=== PATIENT | female | born 1945 | race Caucasian/White ===

== ENCOUNTER 2016-11-01 13:59 | Emergency (ER) | payer MEDICARE ==
[2016-11-01] MEDS ORDERED: Pepcid 20 MG VIAL IV ONE ×2 (14:21→14:27)
[2016-11-01] MEDS ORDERED: Zofran 4 MG/2 ML VIAL IV ONE (14:21)
[2016-11-01 14:26] LABS: BASOPHIL % 0.2 % (0.0-0.4); Eosinophil % 1.3 % (0.00-5.0); Granulocytes % 72.8 % (36.0-66.0); Lymphocytes % 19.6 % (24.0-44.0); Mean Cell Volume 88.9 fl (78-100); Mean Corpuscular Hemoglobin 31.1 pg (26-32); Mean Platelet Volume 10.1 fl (6-9.5); Monocytes % 6.1 % (0.0-12.0); Platelet Count 200 K/mm3 (150-450); Red Blood Count 4.24 M/mm3 (4.1-5.4); Red Cell Distribution Width 11.8 % (11.5-14.0); White Blood Count 10.8 K/mm3 (4.0-10.5)
[2016-11-01] MEDS ORDERED: Sodium Chloride 0.9% 1000 ML 1,000 ML ONE (14:27)
[2016-11-01] MEDS ORDERED: Zofran 4 MG/2 ML VIAL ONE (14:27)
--- NOTE | 2016-11-01 14:27 | ERPHSYRPT ---
- History of Present Illness Time Seen by Provider: 11/01/16 14:10 Historian: patient Patient Subjective Stated Complaint: PT COMPLAINS OF ABDOMINAL PAIN,AND BACK PAIN STATES. SHE WAS SEEN 3-4 WEEKS AGO WAS DIAGNOSED WITH UTI. GIVEN AN ANTIBIOTIC STATES SHE WAS STILL HAVING THE ABDOMINAL AND BACK PAIN STATES FOLLOWED UP WITH FAMILY MD AND HAD A PELVIC ULTRASOUND DONE LAST WEEK PT STATES SHE HAS COTINUED TO HAVE THIS PAIN DENIES. FEVER OR DIARRHEA STATES OCCASIONAL NAUSEA DENIES PROBLMES WTIH URINATION. Triage Nursing Assessment: PT ALERT WARM AND DRY RESP EASY NON LABORED ABDOMEN SOFT NON TENDER ON PALPATION PT AMBULATED TO ROOM WITOUT DIFFICULTY. Physician History: CC: abd pain hx: 71 y/o patient with abdominal pain to her back. She has had for a couple weeks, worse and now has nausea. Prior hysterectomy and cholecystectomy. She had normal pelvic sonogram. Initially was treated thru clinic for UTI. She then saw Dr Diehl. No fever or chills or cough. No vomiting. Allergies/Adverse Reactions: No Known Drug Allergies Allergy (Verified 10/24/15 14:11) Home Medications: Aspirin/Dipyridamole [Aggrenox 25 mg-200 mg Capsule] 1 each PO BID 10/24/15 [ History] Atorvastatin Calcium [Lipitor 20MG Tablet] 20 mg PO HS 10/24/15 [History] Carvedilol 6.25 mg [Coreg 6.25 MG] 6.25 mg PO BID 10/24/15 [History] Clonazepam 0.5 mg [Klonopin 0.5 MG] 0.5 mg PO HS 10/24/15 [History] HydrALAzine HCL 25 MG TAB [Apresoline 25 MG TABLET] 25 mg PO TID 10/24/15 [History] Levomefolate/B6/B12/Algal Oil [Metanx Capsule] 1 each PO DAILY 10/24/15 [History ] Hx Tetanus, Diphtheria Vaccination/Date Given: Yes Hx Influenza Vaccination/Date Given: No Hx Pneumococcal Vaccination/Date Given: No Immunizations Up to Date: Yes - Review of Systems Constitutional: No Fever, No Chills Eyes: No Symptoms Ears, Nose, & Throat: No Symptoms Respiratory: No Cough Cardiac: No Chest Pain Abdominal/Gastrointestinal: Abdominal Pain, Nausea, No Vomiting, No Diarrhea Genitourinary Symptoms: No Dysuria Musculoskeletal: Back Pain Skin: No Rash Neurological: No Headache All Other Systems: Reviewed and Negative - Past Medical History Pertinent Past Medical History: Yes Neurological History: No Pertinent History ENT History: No Pertinent History Cardiac History: High Cholesterol, Hypertension Respiratory History: No Pertinent History Endocrine Medical History: No Pertinent History Musculoskeletal History: No Pertinent History GI Medical History: No Pertinent History History: No Pertinent History Psycho-Social History: No Pertinent History Female Reproductive Disorders: No Pertinent History Other Medical History: liver hemangioma - Past Surgical History Past Surgical History: Yes Neuro Surgical History: No Pertinent History Cardiac: No Pertinent History Respiratory: No Pertinent History Gastrointestinal: Cholecystectomy Genitourinary: No Pertinent History Musculoskeletal: No Pertinent History Female Surgical History: Hysterectomy Other Surgical History: partial hysterectomy. a/p repair for fallen bladder - Social History Smoking Status: Never smoker Exposure to second hand smoke: No Drug Use: none Patient Lives Alone: No - Female History Hx Last Menstrual Period: HSYTERECTOMY - Nursing Vital Signs Nursing Vital Signs: Initial Vital Signs Temperature 98.1 F Temperature Source Oral Pulse Rate 64 Respiratory Rate 16 Blood Pressure [] 130/69 Pain Intensity 4 - Physical Exam General Appearance: alert Eye Exam: PERRL/EOMI Ears, Nose, Throat Exam: normal ENT inspection, moist mucous membranes Neck Exam: normal inspection, non-tender, supple Respiratory Exam: normal breath sounds Cardiovascular Exam: regular rate/rhythm Gastrointestinal/Abdomen Exam: soft, tenderness (mild diffuse discomfort), No mass Back Exam: normal inspection, normal range of motion Extremity Exam: normal inspection, normal range of motion Neurologic Exam: alert, oriented x 3, cooperative, supervisor 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 machine II-XII nml as tested, sensation nml, No motor deficits Skin Exam: warm, dry SpO2 Interpretation: normal SpO2: 95 Oxygen Delivery: Room Air - Course Nursing assessment & vital signs reviewed: Yes EKG Interpreted by Me: RATE (59), Sinus Jonatan, NORMAL AXIS, NORMAL INTERVALS ( QTc 416), NORMAL QRS, NORMAL ST-T - CT Exams abdomen/pelvis CT Interpretation: Tele-radiologist Report (stable HH, colonic diverticulosis) Ordered Tests: Active Orders 24 hr Category Date Time Status Clean Catch Urine Specimen STAT Care 11/01/16 14:06 Active EKG-ER Only STAT Care 11/01/16 14:14 Active IV Insertion STAT Care 11/01/16 14:06 Active ABDOMEN AND PELVIS W CONTRAST [CT] Stat Exams 11/01/16 14:21 Taken CBC W DIFF Stat Lab 11/01/16 14:10 Completed CMP Stat Lab 11/01/16 14:10 Completed CULTURE,URINE Stat Lab 11/01/16 14:10 Received LIPASE Stat Lab 11/01/16 14:10 Completed Lactic Acid Stat Lab 11/01/16 14:14 Completed UA W/ MICROSCOPIC Stat Lab 11/01/16 14:10 Completed Medication Summary Generic Name Dose Route Start Last Admin Trade Name Freq PRN Reason Stop Dose Admin Sodium Chloride 1,000 mls @ 100 mls/hr 11/01/16 14:30 11/01/16 14:29 Sodium Chloride 0.9% 1000 Ml IV 12/01/16 14:29 100 mls/hr .Q10H AJ Administration Discontinued Medications Generic Name Dose Route Start Last Admin Trade Name Freq PRN Reason Stop Dose Admin Famotidine 20 mg 11/01/16 14:21 11/01/16 14:31 Pepcid 20 Mg Vial IV 11/01/16 14:22 20 mg STAT ONE Administration Famotidine Confirm 11/01/16 14:27 Pepcid 20 Mg Vial Administered 11/01/16 14:28 Dose 20 mg IV .STK-MED ONE Ondansetron HCl 4 mg 11/01/16 14:21 11/01/16 14:31 Zofran 4 Mg/2 Ml Vial IV 11/01/16 14:22 4 mg STAT ONE Administration Ondansetron HCl Confirm 11/01/16 14:27 Zofran 4 Mg/2 Ml Vial Administered 11/01/16 14:28 Dose 4 mg .ROUTE .STK-MED ONE Lab/Rad Data: Laboratory Result Diagrams 11/01/16 14:10 11/01/16 14:10 Laboratory Results 11/01/16 11/01/16 11/01/16 Range/Units 14:14 14:10 14:10 WBC 10.8 H (4.0-10.5) K/mm3 RBC 4.24 (4.1-5.4) M/mm3 Hgb 13.2 (12.0-16.0) gm/dl Hct 37.7 (35-47) % MCV 88.9 (78-100) fl MCH 31.1 (26-32) pg MCHC 35.0 (32-36) g/dl RDW 11.8 (11.5-14.0) % Plt Count 200 (150-450) K/mm3 MPV 10.1 H (6-9.5) fl Gran % 72.8 H (36.0-66.0) % Lymphocytes % 19.6 L (24.0-44.0) % Monocytes % 6.1 (0.0-12.0) % Eosinophils % 1.3 (0.00-5.0) % Basophils % 0.2 (0.0-0.4) % Basophils # 0.02 (0-0.4) Sodium 138 (136-145) mEq/L Potassium 3.4 L (3.5-5.1) mEq/L Chloride 100 (98-107) mEq/L Carbon Dioxide 27.7 (21-32) mEq/L Anion Gap 13.4 (5-15) MEQ/L BUN 15 (9-20) mg/dL Creatinine 1.01 (0.55-1.30) mg/dl Estimated GFR 58 ML/MIN Glucose 117 H (70-110) MG/DL Lactic Acid 1.2 (0.4-2.0) Calcium 9.9 (8.5-10.1) mg/dL Total Bilirubin 0.70 (0.2-1.0) mg/dL AST 17 (15-37) U/L ALT 27 (12-78) U/L Alkaline Phosphatase 76 (46-116) U/L Serum Total Protein 7.7 (6.4-8.2) gm/dL Albumin 4.1 (3.4-5.0) g/dL Lipase 109 (73-393) U/L Ur Collection Type Urine Color (YELLOW) Urine Appearance (CLEAR) Urine pH (5-6) Ur Specific [place] (1.005-1.025) Urine Protein (Negative) Urine Ketones (NEGATIVE) Urine Blood (0-5) Иван/ul Urine Nitrite (NEGATIVE) Urine Bilirubin (NEGATIVE) Urine Urobilinogen (0-1) mg/dL Ur Leukocyte Esterase (NEGATIVE) Urine Microscopic RBC (0-2) /HPF Urine Microscopic WBC (0-5) /HPF Ur Epithelial Cells (FEW) /HPF Urine Bacteria (NEGATIVE) /HPF Hyaline Casts (0-2) /LPF Urine Mucus (NEGATIVE) /HPF Urine Glucose (NEGATIVE) mg/dL Specimen Received 11/01/16 Range/Units 14:10 WBC (4.0-10.5) K/mm3 RBC (4.1-5.4) M/mm3 Hgb (12.0-16.0) gm/dl Hct (35-47) % MCV (78-100) fl MCH (26-32) pg MCHC (32-36) g/dl RDW (11.5-14.0) % Plt Count (150-450) K/mm3 MPV (6-9.5) fl Gran % (36.0-66.0) % Lymphocytes % (24.0-44.0) % Monocytes % (0.0-12.0) % Eosinophils % (0.00-5.0) % Basophils % (0.0-0.4) % Basophils # (0-0.4) Sodium (136-145) mEq/L Potassium (3.5-5.1) mEq/L Chloride (98-107) mEq/L Carbon Dioxide (21-32) mEq/L Anion Gap (5-15) MEQ/L BUN (9-20) mg/dL Creatinine (0.55-1.30) mg/dl Estimated GFR ML/MIN Glucose (70-110) MG/DL Lactic Acid (0.4-2.0) Calcium (8.5-10.1) mg/dL Total Bilirubin (0.2-1.0) mg/dL AST (15-37) U/L ALT (12-78) U/L Alkaline Phosphatase (46-116) U/L Serum Total Protein (6.4-8.2) gm/dL Albumin (3.4-5.0) g/dL Lipase (73-393) U/L Ur Collection Type VOID Urine Color YELLOW (YELLOW) Urine Appearance HAZY (CLEAR) Urine pH 7.0 (5-6) Ur Specific [place] 1.010 (1.005-1.025) Urine Protein NEGATIVE (Negative) Urine Ketones NEGATIVE (NEGATIVE) Urine Blood 5-10 (0-5) Иван/ul Urine Nitrite NEGATIVE (NEGATIVE) Urine Bilirubin NEGATIVE (NEGATIVE) Urine Urobilinogen NORMAL (0-1) mg/dL Ur Leukocyte Esterase 2+ (NEGATIVE) Urine Microscopic RBC 0-2 (0-2) /HPF Urine Microscopic WBC 5-10 (0-5) /HPF Ur Epithelial Cells MODERATE (FEW) /HPF Urine Bacteria MODERATE (NEGATIVE) /HPF Hyaline Casts 0-2 (0-2) /LPF Urine Mucus SLIGHT (NEGATIVE) /HPF Urine Glucose NEGATIVE (NEGATIVE) mg/dL Specimen Received 11/01/16 1420 - Progress Progress Note: 11/01/16 16:17 Pt stable. Urine culture sent. Will Rx bactrim to cover UTI and diverticular disease. She has ibuprofen. Will release with instr. Counseled pt/family regarding: lab results, diagnosis, need for follow-up, rad results - Departure Time of Disposition: 16:18 Departure Disposition: Home Clinical Impression: Abdominal pain, UTI (urinary tract infection), Diverticulosis Condition: Stable Critical Care Time: No Referrals: CESAR DIEHL [Primary Care Provider] - Instructions: Abdominal Pain-Adult Additional Instructions: [place] diet. Rx bactrim. Ibuprofen as directed for discomfort. Follow up with Dr Diehl Thursday. Prescriptions: Smz/Tmp Ds Tablet [Bactrim Ds Tablet] 1 udtab PO BID #20 tablet
[2016-11-01] MEDS ORDERED: Sodium Chloride 0.9% 1000 ML 1,000 ML IV SCH (14:30)
[2016-11-01 14:42] LABS: ALBUMIN 4.1 g/dL (3.4-5.0); ANION GAP 13.4 MEQ/L (5-15); BILIRUBIN,TOTAL 0.7 mg/dL (0.2-1.0); Carbon Dioxide 27.7 mEq/L (21-32); Potassium 3.4 mEq/L (3.5-5.1); Total Protein 7.7 gm/dL (6.4-8.2)
[2016-11-01 14:45] LABS: Collection Type VOID
[2016-11-01 14:46] LABS: Bilirubin NEGATIVE (NEGATIVE); COMPLETE URINE MICROSCOPIC? YES; Epithelial Cells MODERATE /HPF (FEW); Glucose NEGATIVE (NEGATIVE); Leukocyte Esterase 2+ (NEGATIVE); Mucus SLIGHT /HPF (NEGATIVE)
[2016-11-01 14:47] LABS: ADD URINE CULTURE? YES (NO); Bacteria MODERATE /HPF (NEGATIVE); Hyaline Casts 0-2 /LPF (0-2)
[2016-11-01 16:15] VITALS: PULSE 64
[2016-11-01] MEDS ORDERED: MOTRIN 600 MG PO ONE (16:17)
[2016-11-01] MEDS ORDERED: MOTRIN 600 MG ONE (16:20)
[2016-11-01 16:28] VITALS: BP 127/59; O2SAT 96
--- NOTE | 2016-11-01 20:07 | XRAY ---
Indication: General abdominal pain. Recent UTIs. Multiple contiguous axial images obtained through the abdomen and pelvis using 80 cc of Isovue-370 contrast only. Comparison: Noncontrast exam March 20, 2015. Lung bases demonstrates minimal bibasilar dependent atelectasis. Heart is not enlarged. Stable small hiatal hernia. Noncontrasted stomach and bowel loops appear nonobstructed. Stable scattered colonic diverticulosis without diverticulitis. Normal appendix. No free fluid/air. There has been interval cholecystectomy with stable hysterectomy. Remaining liver, pancreas, spleen, adrenal glands, kidneys, ureters, urinary bladder, and aorta appear unremarkable for noncontrast exam. No pathologic retroperitoneal lymphadenopathy. Osseous structures intact with minimal degenerative changes throughout the spine and hips. Impression: 1. Stable small hiatal hernia and colonic diverticulosis. 2. No acute intra-abdominal/pelvic abnormalities. CTDI 15.33
== END 2016-11-01 16:32 | disposition home or self-care (01) ==
LOC: ED 13:59
DX: R10.9 Unspecified abdominal pain (principal); N39.0 Urinary tract infection, site not specified; K57.90 Diverticulosis of intestine, part unspecified, without perforation or abscess without bleeding; M54.9 Dorsalgia, unspecified; R11.0 Nausea; I10 Essential (primary) hypertension; E78.00 Pure hypercholesterolemia, unspecified; Z79.899 Other long term (current) drug therapy
CPT/HCPCS: 36000; 36415; 74177; 80053; 81000; 83605; 83690; 85025; 87077; 87086; 87186; 93005; 96360; 96374; 96375; 99284; J2405; A9270-GY

== ENCOUNTER 2016-11-20 05:53 | Day surgery (SDC) | payer MEDICARE ==
[2016-11-20] MEDS ORDERED: Lactated Ringers 1,000 ML IV SCH (06:30)
[2016-11-20] MEDS ORDERED: Lactated Ringers 1,000 ML IV ONE (07:37)
[2016-11-20] MEDS ORDERED: Versed 2 MG/2 ML Injection IV ONE (08:00)
[2016-11-20] MEDS ORDERED: DIPRIVAN 200 MG/20 ML IV ONE (08:00)
[2016-11-20 08:50] VITALS: O2SAT 98
[2016-11-20 08:52] VITALS: BP 155/65; PULSE 55
--- NOTE | 2016-11-20 10:31 | OP ---
SURGERY DATE/TIME: 11/20/2016704 PREOPERATIVE DIAGNOSIS: Abdominal pain. POSTOPERATIVE DIAGNOSIS: Diverticulosis. PROCEDURE: Colonoscopy. SURGEON: Sukumar Hernandez M.D. ANESTHESIA: MAC by Carloz Elias CRNA. ESTIMATED BLOOD LOSS: None. SPECIMENS: None. DESCRIPTION OF PROCEDURE: After informed written consent was obtained, the patient was taken to the endoscopy suite. She underwent monitored anesthesia and a digital rectal exam showed normal sphincter tone and no internal lesions. The scope was inserted into the rectum and sequentially the entire colonic mucosa was traversed. The level of cecum was reached and verified with direct visualization of ileocecal valve. There was moderate diverticulosis throughout most of the length of the colon but no evidence of mucosal lesions or bleeding or any inflammatory changes upon withdrawal. Prior to withdrawal retroflexion was performed and showed no internal lesions. The scope was removed and the patient was transferred to the recovery room in excellent condition.
== END 2016-11-20 08:55 | disposition home or self-care (01) ==
LOC: SDC 05:53
PROVIDERS: ATTEND Family Medicine
PROC: 0DJD8ZZ Inspection of Lower Intestinal Tract, Via Natural or Artificial Opening Endoscopic (ICD-10-PCS; principal; 2016-11-20)
DX: K57.90 Diverticulosis of intestine, part unspecified, without perforation or abscess without bleeding (principal); I10 Essential (primary) hypertension; E03.9 Hypothyroidism, unspecified
CPT/HCPCS: 00810; J2250; J2704

== ENCOUNTER 2017-09-05 17:27 | Emergency (ER) | payer MEDICARE ==
--- NOTE | 2017-09-05 17:54 | ERPHSYRPT ---
- History of Present Illness Time Seen by Provider: 09/05/17 17:48 Source: patient Exam Limitations: no limitations Physician History: 71-year-old white female arrives with complaints of an erythematous area on her right groin which is been itching which has been present since being bitten in the area by a tick 2 days ago patient states that she removed the tick 2 days ago she usually doesn't have any problems but she noticed that she's been having a erythema to the area and itching to the area since. She has no fevers no nausea no vomiting she has not been otherwise ill. Past medical history includes hypercholesterolemia high blood pressure Past surgical history includes hysterectomy and bladder repair Timing/Duration: day(s) (2 days) Severity: mild Modifying Factors: Improves With: nothing Associated Symptoms: other (erythematous itchy area right groin), No nausea, No vomiting, No abdominal pain, No shortness of breath, No heartburn, No diaphoresis, No cough, No chills, No chest pain, No fever, No headaches, No loss of appetite, No malaise, No syncope, No seizure, No weakness Allergies/Adverse Reactions: No Known Drug Allergies Allergy (Verified 09/05/17 17:37) Home Medications: Aspirin/Dipyridamole [Aggrenox 25 mg-200 mg Capsule] 1 each PO BID 10/24/15 [ History] Atorvastatin Calcium [Lipitor 20MG Tablet] 20 mg PO HS 10/24/15 [History] Carvedilol 6.25 mg [Coreg 6.25 MG] 12.5 mg PO BID 10/24/15 [History] Amlodipine Besylate [Amlodipine Besylate] 5 mg PO DAILY 09/05/17 [History] Aspirin/Dipyridamole [Aspirin-Dipyridam ER 25-200 mg] 25 mg PO DAILY 09/05/17 [ History] Hx Tetanus, Diphtheria Vaccination/Date Given: Yes Hx Influenza Vaccination/Date Given: No Hx Pneumococcal Vaccination/Date Given: No - Review of Systems Constitutional: No Fever, No Chills Eyes: No Symptoms Ears, Nose, & Throat: No Symptoms Respiratory: No Cough, No Dyspnea Cardiac: No Chest Pain, No Edema, No Syncope Abdominal/Gastrointestinal: No Abdominal Pain, No Nausea, No Vomiting, No Diarrhea Genitourinary Symptoms: No Dysuria Musculoskeletal: No Back Pain, No Neck Pain Skin: Other (erythematous itchy area right groin after tick bite 2 days ago) Neurological: No Dizziness, No Focal Weakness, No Sensory Changes Psychological: No Symptoms Endocrine: No Symptoms All Other Systems: Reviewed and Negative - Past Medical History Pertinent Past Medical History: Yes Neurological History: Peripheral Neuropathy ENT History: No Pertinent History Cardiac History: High Cholesterol, Hypertension Respiratory History: No Pertinent History Endocrine Medical History: No Pertinent History Musculoskeletal History: No Pertinent History GI Medical History: No Pertinent History History: No Pertinent History Psycho-Social History: No Pertinent History Female Reproductive Disorders: No Pertinent History Other Medical History: left leg - neuropathy. hx dizziness and stroke has been r/o. er visit abdominal pain 11/01/16 - Past Surgical History Past Surgical History: Yes Neuro Surgical History: No Pertinent History Cardiac: No Pertinent History Respiratory: No Pertinent History Gastrointestinal: Cholecystectomy Genitourinary: No Pertinent History Musculoskeletal: No Pertinent History Female Surgical History: Hysterectomy Other Surgical History: partial hysterectomy. a/p repair for fallen bladder - Social History Smoking Status: Never smoker Exposure to second hand smoke: No Drug Use: none Patient Lives Alone: No - Physical Exam General Appearance: no apparent distress, alert Eye Exam: PERRL/EOMI, eyes nml inspection Ears, Nose, Throat Exam: normal ENT inspection, TMs normal, pharynx normal, moist mucous membranes Neck Exam: normal inspection, non-tender, supple, full range of motion Respiratory Exam: normal breath sounds, lungs clear, No respiratory distress Cardiovascular Exam: regular rate/rhythm, normal heart sounds, normal peripheral pulses Gastrointestinal/Abdomen Exam: soft, normal bowel sounds, No tenderness, No mass Back Exam: normal inspection, normal range of motion, No CVA tenderness, No vertebral tenderness Extremity Exam: normal inspection, normal range of motion, pelvis stable Neurologic Exam: alert, oriented x 3, cooperative, normal mood/affect, nml cerebellar function, nml station & gait, sensation nml, No motor deficits Skin Exam: other (2 cm erythematous area right groin no foreign bodies or retained tick parts are noted) Lymphatic Exam: No adenopathy SpO2 Interpretation: normal (94%) - Course Nursing assessment & vital signs reviewed: Yes - Progress Progress: improved Progress Note: 09/05/17 17:52 This is a 71-year-old white female who has an approximately 2 cm area of erythema on her right groin after being bit by a tick 2 days ago she states she removed the tick 2 days ago and has had the erythematous area shortly thereafter she states the area itches she has not been otherwise ill. Will go ahead and place patient on doxycycline 100 mg orally twice a day for 10 days. Patient can use Caladryl or Benadryl cream to the area for itching. She is to follow-up with her family doctor if any problems. Return for acute distress or for severe symptoms - Departure Time of Disposition: 17:53 Departure Disposition: Home Clinical Impression: tick bite right groin Condition: Fair Critical Care Time: No Referrals: CESAR VALE [Primary Care Provider] - Additional Instructions: Return home. Doxycycline 100 mg orally twice a day for 10 days. Caladryl or Benadryl cream topically as needed for itching. Follow-up with your family doctor or return if problems. Return for acute distress or for severe symptoms. Prescriptions: Doxycycline Hyclate 100 mg [Vibramycin 100 MG] 100 mg PO BID #20 tab
[2017-09-05] MEDS ORDERED: Vibramycin 100 MG PO ONE (17:59)
[2017-09-05] MEDS ORDERED: Vibramycin 100 MG ONE (18:00)
[2017-09-05 18:05] VITALS: BP 149/77; PULSE 66; O2SAT 96
== END 2017-09-05 18:06 | disposition home or self-care (01) ==
LOC: ED 17:27
DX: S30.861A Insect bite (nonvenomous) of abdominal wall, initial encounter (principal); W57.XXXA Bitten or stung by nonvenomous insect and other nonvenomous arthropods, initial encounter
CPT/HCPCS: 99283; A9270-GY

== ENCOUNTER 2017-09-28 17:02 | Emergency (ER) | payer MEDICARE ==
--- NOTE | 2017-09-28 18:11 | ERPHSYRPT ---
- History of Present Illness Source: patient Exam Limitations: no limitations Patient Subjective Stated Complaint: pt her for pain to back and at times all over her body for 4 days, no injury to back, Triage Nursing Assessment: pt alert, walked in, resp easy, skin w/d/p, no edema noted Timing/Duration: week(s) (2), gradual onset, worse Method of Injury: prior injury Quality: aching Back Pain Location: T-spine, lumbar spine Severity of Pain-Max: moderate Severity of Pain-Current: moderate Modifying Factors: Improves With: nothing Associated Symptoms: lower back pain, No denies symptoms, No urinary incontinence, No constipation, No nausea, No vomiting, No problems urinating, No dizziness, No weakness Previous symptoms: no prior history Hx Tetanus, Diphtheria Vaccination/Date Given: Yes Hx Influenza Vaccination/Date Given: Yes Hx Pneumococcal Vaccination/Date Given: Yes Immunizations Up to Date: Yes <ROBERT BUTTERFIELD - Last Filed: 09/28/17 18:03> <DONIS PIKE - Last Filed: 09/28/17 20:34> - History of Present Illness Time Seen by Provider: 09/28/17 18:11 Physician History: The patient is a 71-year-old female complaining of back pain for at least 2 weeks. She has a hard time sleeping at night due to the pain. Some days the pain feels more pronounced on the left, then other days is more pronounced on the right. She has pain when she sits. She denies fever or chills. She denies urinary problems. She denies nausea or vomiting. She denies diarrhea. Her past medical history is significant for TIA, hypertension, high cholesterol , UTI, diverticulosis, and back pain. (ROBERT BUTTERFIELD) Allergies/Adverse Reactions: No Known Drug Allergies Allergy (Verified 09/28/17 17:18) Home Medications: Atorvastatin Calcium [Lipitor 20MG Tablet] 20 mg PO HS 10/24/15 [History] Carvedilol 6.25 mg [Coreg 6.25 MG] 12.5 mg PO BID 10/24/15 [History] Amlodipine Besylate [Amlodipine Besylate] 5 mg PO DAILY 09/05/17 [History] Aspirin/Dipyridamole [Aspirin-Dipyridam ER 25-200 mg] 25 mg PO DAILY 09/05/17 [ History] Olmesartan Medoxomil 20 mg [Benicar 20 MG] 20 mg .ROUTE DAILY 09/28/17 [ History] - Review of Systems Constitutional: No Fever, No Chills Eyes: No Symptoms Ears, Nose, & Throat: No Symptoms Respiratory: No Cough, No Dyspnea Cardiac: No Chest Pain, No Edema, No Syncope Abdominal/Gastrointestinal: No Abdominal Pain, No Nausea, No Vomiting, No Diarrhea Genitourinary Symptoms: No Dysuria Musculoskeletal: Back Pain, No Neck Pain Skin: No Rash Neurological: No Dizziness, No Focal Weakness, No Sensory Changes Psychological: No Symptoms Endocrine: No Symptoms Hematologic/Lymphatic: No Symptoms Immunological/Allergic: No Symptoms All Other Systems: Reviewed and Negative <ROBERT BUTTERFIELD - Last Filed: 09/28/17 18:03> - Past Medical History Pertinent Past Medical History: Yes Neurological History: Peripheral Neuropathy ENT History: No Pertinent History Cardiac History: High Cholesterol, Hypertension Respiratory History: No Pertinent History Endocrine Medical History: No Pertinent History Musculoskeletal History: No Pertinent History GI Medical History: No Pertinent History History: No Pertinent History Psycho-Social History: No Pertinent History Female Reproductive Disorders: No Pertinent History Other Medical History: left leg - neuropathy. hx dizziness and stroke has been r/o. er visit abdominal pain 11/01/16 - Past Surgical History Past Surgical History: Yes Neuro Surgical History: No Pertinent History Cardiac: No Pertinent History Respiratory: No Pertinent History Gastrointestinal: Cholecystectomy Genitourinary: No Pertinent History Musculoskeletal: No Pertinent History Female Surgical History: Hysterectomy Other Surgical History: partial hysterectomy. a/p repair for fallen bladder - Social History Smoking Status: Never smoker Exposure to second hand smoke: No Drug Use: none Patient Lives Alone: No - Female History Hx Last Menstrual Period: post Hx Now: No <ROBERT BUTTERFIELD - Last Filed: 09/28/17 18:03> - Physical Exam General Appearance: no apparent distress, alert Eye Exam: PERRL/EOMI, eyes nml inspection Ears, Nose, Throat Exam: normal ENT inspection Neck Exam: normal inspection, non-tender, supple, full range of motion, No meningismus, No midline tenderness Respiratory Exam: normal breath sounds, lungs clear, No respiratory distress Cardiovascular Exam: regular rate/rhythm, normal heart sounds Gastrointestinal Exam: soft, No tenderness, No mass Pelvic Exam: not done Rectal Exam: not done Back Exam: other (mild tenderness of left mid thoracic paraspinous muscle.) Extremity Exam: normal inspection, normal range of motion, No calf tenderness, No pedal edema Skin Exam: normal color, warm, dry, No rash SpO2 Interpretation: normal SpO2: 95 Oxygen Delivery: Room Air <ROBERT BUTTERFIELD - Last Filed: 09/28/17 18:03> - Nursing Vital Signs Nursing Vital Signs: Initial Vital Signs Temperature 97.0 F 09/28/17 17:13 Pulse Rate 69 09/28/17 17:13 Respiratory Rate 16 09/28/17 17:13 Blood Pressure 160/70 09/28/17 17:13 O2 Sat by Pulse Oximetry 95 09/28/17 17:13 Pain Scale Pain Intensity [Back] 7 Pain Intensity 4 - Course Nursing assessment & vital signs reviewed: Yes <DONIS PIKE - Last Filed: 09/28/17 20:34> Ordered Tests: Active Orders 24 hr Category Date Time Status LUMBAR LIMITED (2 OR 3 VIEWS) Stat Exams 09/28/17 18:35 Taken BMP Stat Lab 09/28/17 18:16 Completed CBC W DIFF Stat Lab 09/28/17 Completed CULTURE,URINE Stat Lab 09/28/17 18:43 Received UA W/ MICROSCOPIC Stat Lab 09/28/17 18:43 Completed Medication Summary Discontinued Medications Generic Name Dose Route Start Last Admin Trade Name Freq PRN Reason Stop Dose Admin Nitrofurantoin Macrocrystals 100 mg 09/28/17 20:27 Macrobid 100mg Capsule PO 09/28/17 20:28 STAT ONE Potassium Chloride 40 meq 09/28/17 19:40 09/28/17 20:02 Klor Con 10 Meq PO 09/28/17 19:41 40 meq STAT ONE Administration Potassium Chloride Confirm 09/28/17 20:00 Klor Con 10 Meq Administered 09/28/17 20:01 Dose 40 meq PO .STK-MED ONE Lab/Rad Data: Laboratory Result Diagrams 09/28/17 Unknown 09/28/17 18:16 Laboratory Results 09/28/17 09/28/17 09/28/17 Range/Units Unknown 18:43 18:16 WBC 11.5 H (4.0-10.5) K/mm3 RBC 4.06 L (4.1-5.4) M/mm3 Hgb 12.9 (12.0-16.0) gm/dl Hct 36.7 (35-47) % MCV 90.4 (78-100) fl MCH 31.7 (26-32) pg MCHC 35.1 (32-36) g/dl RDW 12.0 (11.5-14.0) % Plt Count 217 (150-450) K/mm3 MPV 9.7 H (6-9.5) fl Gran % 71.7 H (36.0-66.0) % Eos # (Auto) 0.15 (0-0.5) Absolute Lymphs (auto) 2.22 (1.0-4.6) Absolute Monos (auto) 0.85 (0.0-1.3) Lymphocytes % 19.3 L (24.0-44.0) % Monocytes % 7.4 (0.0-12.0) % Eosinophils % 1.3 (0.00-5.0) % Basophils % 0.3 (0.0-0.4) % Absolute Granulocytes 8.24 H (1.4-6.9) Basophils # 0.03 (0-0.4) Sodium 136 L (137-145) mmol/L Potassium 3.4 L (3.5-5.1) mmol/L Chloride 99 (98-107) mmol/L Carbon Dioxide 25 (22-30) mmol/L Anion Gap 14.9 (5-15) MEQ/L BUN 22 H (7-17) mg/dL Creatinine 0.66 (0.52-1.04) mg/dL Estimated GFR > 60.0 ML/MIN Glucose 94 (74-106) mg/dL Calcium 9.4 (8.4-10.2) mg/dL Ur Collection Type VOID Urine Color YELLOW (YELLOW) Urine Appearance CLEAR (CLEAR) Urine pH 6.0 (5-6) Ur Specific [place] 1.015 (1.005-1.025) Urine Protein NEGATIVE (Negative) Urine Ketones NEGATIVE (NEGATIVE) Urine Blood TRACE NON-HEM (0-5) Иван/ul Urine Nitrite NEGATIVE (NEGATIVE) Urine Bilirubin NEGATIVE (NEGATIVE) Urine Urobilinogen NORMAL (0-1) mg/dL Ur Leukocyte Esterase 2+ (NEGATIVE) Urine Microscopic RBC 2-5 (0-2) /HPF Urine Microscopic WBC 2-5 (0-5) /HPF Ur Epithelial Cells FEW (FEW) /HPF Urine Bacteria FEW (NEGATIVE) /HPF Urine Culture Reflexed YES (NO) Urine Glucose NEGATIVE (NEGATIVE) mg/dL Specimen Received 09/28/17 1900 <ROBERT BUTTERFIELD - Last Filed: 09/28/17 18:03> - Progress Progress: improved <DONIS PIKE - Last Filed: 09/28/17 20:34> - Progress Progress Note: 09/28/17 20:31 Pt has a UTI and will be given a dose of macrobid and tylenol # 3 for pain. ( DONIS PIKE) <ROBERT BUTTERFIELD - Last Filed: 09/28/17 18:03> - Departure Time of Disposition: 20:31 Departure Disposition: Home Critical Care Time: No <DONIS PIKE - Last Filed: 09/28/17 20:34> - Departure Clinical Impression: UTI (urinary tract infection) Qualifiers: Urinary tract infection type: site unspecified Hematuria presence: without hematuria Qualified Code(s): N39.0 - Urinary tract infection, site not specified Condition: Stable Referrals: CESAR VALE [Primary Care Provider] - Instructions: Urinary Tract Infection, Adult (DC) Additional Instructions: Return to the ER if you should continue to have back pain, urinary symptoms, fever or chills. Prescriptions: Codeine Phosphate/APAP #3 [Tylenol #3 Tablet] 1 tab PO QID PRN #10 tablet MDD 4 PRN Reason: Pain Nitrofurantoin Monohyd/M-Cryst [Macrobid 100 mg Capsule] 100 mg PO BID #13 capsule
[2017-09-28 19:20] LABS: BASOPHIL % 0.3 % (0.0-0.4); Basophil (Absolute #) 0.03 (0-0.4); Eosinophil % 1.3 % (0.00-5.0); Eosinophil (Absolute #) 0.15 (0-0.5); Granulocyte Absolute (ANC) 8.24 (1.4-6.9); Granulocytes % 71.7 % (36.0-66.0); Hematocrit 36.7 % (35-47); Hemoglobin 12.9 gm/dl (12.0-16.0); Lymphocyte (Absolute #) 2.22 (1.0-4.6); Lymphocytes % 19.3 % (24.0-44.0); Mean Cell Volume 90.4 fl (78-100); Mean Corpuscular Hgb Concent. 35.1 g/dl (32-36); Mean Platelet Volume 9.7 fl (6-9.5); Monocyte (Absolute #) 0.85 (0.0-1.3); Monocytes % 7.4 % (0.0-12.0); Platelet Count 217 K/mm3 (150-450); Red Blood Count 4.06 M/mm3 (4.1-5.4); White Blood Count 11.5 K/mm3 (4.0-10.5)
[2017-09-28 19:21] LABS: ANION GAP 14.9 MEQ/L (5-15); BLOOD UREA NITROGEN 22 mg/dL (7-17); CHLORIDE 99 mmol/L (98-107); Calcium 9.4 mg/dL (8.4-10.2); Carbon Dioxide 25 mmol/L (22-30); Creatinine 1 0.66 mg/dL (0.52-1.04); Glucose 94 mg/dL (74-106); Potassium 3.4 mmol/L (3.5-5.1); SODIUM 136 mmol/L (137-145)
[2017-09-28 19:22] LABS: Mean Corpuscular Hemoglobin 31.7 pg (26-32)
[2017-09-28] MEDS ORDERED: Klor Con 10 MEQ PO ONE (20:00)
[2017-09-28] MEDS: Klor Con 10 MEQ PO ONE (20:02)
[2017-09-28 20:03] LABS: Appearance CLEAR (CLEAR); Bilirubin NEGATIVE (NEGATIVE); Glucose NEGATIVE (NEGATIVE); Ketones NEGATIVE (NEGATIVE); Leukocyte Esterase 2+ (NEGATIVE); Nitrite NEGATIVE (NEGATIVE); Protein,Urine Dip NEGATIVE (Negative); Specific Gravity 1.015 (1.005-1.025); Urobilinogen NORMAL mg/dL (0-1)
[2017-09-28 20:04] LABS: Blood TRACE NON-HEM Ery/ul (0-5)
[2017-09-28 20:05] LABS: Bacteria FEW /HPF (NEGATIVE); Epithelial Cells FEW /HPF (FEW)
[2017-09-28] MEDS ORDERED: Tylenol #3 Tablet ONE (20:34)
[2017-09-28] MEDS ORDERED: Macrobid 100MG Capsule ONE (20:34)
[2017-09-28] MEDS: Macrobid 100MG Capsule PO ONE (20:50)
[2017-09-28] MEDS: Tylenol #3 Tablet PO ONE (21:09)
[2017-09-28 21:10] VITALS: BP 137/74; PULSE 62; O2SAT 98
--- NOTE | 2017-09-29 08:43 | XRAY ---
Indication: Low back pain. No known injury. Comparison: November 09, 2015. 3 views of the lumbar spine demonstrates stable normal lumbar alignment with mild multilevel degenerative spondylosis again greatest at the L2-L3 level and stable degenerative changes of both hips. No acute fracture, subluxation, or suspicious bony lesions. Interval cholecystectomy. Impression: Stable degenerative changes in a otherwise negative lumbar spine.
== END 2017-09-28 20:59 | disposition home or self-care (01) ==
LOC: ED 17:02
DX: N39.0 Urinary tract infection, site not specified (principal); G62.9 Polyneuropathy, unspecified; I10 Essential (primary) hypertension; Z86.73 Personal history of transient ischemic attack (TIA), and cerebral infarction without residual deficits; E78.00 Pure hypercholesterolemia, unspecified; Z79.899 Other long term (current) drug therapy
CPT/HCPCS: 36415; 72100; 80048; 81000; 85025; 87086; 99284; A9270-GY

== ENCOUNTER 2017-10-03 16:56 | Emergency (ER) | payer MEDICARE ==
[2017-10-03] MEDS ORDERED: GI COCKTAIL 45 ML (Maalox/Lidocaine) PO ONE (17:14)
[2017-10-03] MEDS ORDERED: Pepcid 20 MG VIAL IV ONE ×2 (17:14→17:53)
--- NOTE | 2017-10-03 17:18 | ERPHSYRPT ---
<ALEXANDRIA BLACK - Last Filed: 10/03/17 19:10> - History of Present Illness Time Seen by Provider: 10/03/17 17:08 Historian: patient Exam Limitations: no limitations Patient Subjective Stated Complaint: CHEST PAIN INTERMITTENTLY FOR SEVERAL DAYS. GOT WORSE TODAY. Triage Nursing Assessment: AMBULATED TO ROOM PER SELF. SKIN W/D, COLOR NORMAL, RESP NONLABORED. POINTS TO EPIGASTRIC AREA WHEN DEMONSTRATING WHERE PAIN IS. NO EDEMA NOTED. HEART TONES LOUD AND REGULAR. BREATH SOUNDS CLEAR. Physician History: C/o epigastric pain intermittently over the past few days, was seen here few days ago with UTI, improved, but worse today, radiates to the left chest, denies nausea, vomiting, diarrhea, cough, fever, SOB, diaphoresis, other complaints. She took a Tylenol # 3 before coming, but it made her pain worse. Timing/Duration: day(s) Activities at Onset: none Quality: cramping, sharpness Location: epigastric Chest Pain Radiation: back Severity of Pain-Max: severe Severity of Pain-Current: mild Modifying Factors: Improves With: nothing Associated Symptoms: denies symptoms Prior Chest Pain/Cardiac Workup: no prior chest pain Nitro Today/Relief: no nitro taken today Aspirin Treatment Today: no aspirin today Allergies/Adverse Reactions: No Known Drug Allergies Allergy (Verified 10/03/17 17:12) Home Medications: Atorvastatin Calcium [Lipitor 20MG Tablet] 20 mg PO HS 10/24/15 [History] Carvedilol 6.25 mg [Coreg 6.25 MG] 12.5 mg PO BID 10/24/15 [History] Amlodipine Besylate [Amlodipine Besylate] 5 mg PO DAILY 09/05/17 [History] Aspirin/Dipyridamole [Aspirin-Dipyridam ER 25-200 mg] 25 mg PO DAILY 09/05/17 [ History] Olmesartan Medoxomil 20 mg [Benicar 20 MG] 20 mg .ROUTE DAILY 09/28/17 [ History] Hx Tetanus, Diphtheria Vaccination/Date Given: No Hx Influenza Vaccination/Date Given: Yes Hx Pneumococcal Vaccination/Date Given: Yes - Review of Systems Constitutional: No Symptoms Cardiac: Chest Pain All Other Systems: Reviewed and Negative - Past Medical History Pertinent Past Medical History: Yes Neurological History: Peripheral Neuropathy ENT History: No Pertinent History Cardiac History: High Cholesterol, Hypertension Respiratory History: No Pertinent History Endocrine Medical History: No Pertinent History Musculoskeletal History: No Pertinent History GI Medical History: No Pertinent History History: No Pertinent History Psycho-Social History: No Pertinent History Female Reproductive Disorders: No Pertinent History Other Medical History: left leg - neuropathy. hx dizziness and stroke has been r/o. er visit abdominal pain 11/01/16 - Past Surgical History Past Surgical History: Yes Neuro Surgical History: No Pertinent History Cardiac: No Pertinent History Respiratory: No Pertinent History Gastrointestinal: Cholecystectomy Genitourinary: No Pertinent History Musculoskeletal: No Pertinent History Female Surgical History: Hysterectomy Other Surgical History: partial hysterectomy. a/p repair for fallen bladder - Social History Smoking Status: Never smoker Exposure to second hand smoke: No Drug Use: none Patient Lives Alone: No - Female History Hx Now: No - Nursing Vital Signs Nursing Vital Signs: Initial Vital Signs Temperature 98.7 F 10/03/17 16:58 Pulse Rate 67 10/03/17 16:58 Respiratory Rate 16 10/03/17 16:58 Blood Pressure 159/95 10/03/17 16:58 O2 Sat by Pulse Oximetry 97 10/03/17 16:58 Pain Scale Pain Intensity 0 - Physical Exam General Appearance: no apparent distress Eye Exam: eyes nml inspection Ears, Nose, Throat Exam: normal ENT inspection Neck Exam: normal inspection, non-tender, supple, No carotid bruit, No JVD Respiratory Exam: normal breath sounds, lungs clear, airway intact, No chest tenderness Cardiovascular Exam: regular rate/rhythm, normal heart sounds, normal peripheral pulses, No murmur Gastrointestinal/Abdomen Exam: soft, normal bowel sounds, No tenderness, No distention, No mass, No guarding, No ecchymosis, No pulsatile mass Back Exam: normal inspection, No CVA tenderness Extremity Exam: normal inspection, No calf tenderness, No debra's sign, No pedal edema Neurologic Exam: alert, oriented x 3, normal mood/affect Skin Exam: normal color, warm, dry, No rash Lymphatic Exam: No adenopathy SpO2 Interpretation: normal SpO2: 97 Oxygen Delivery: Room Air - Course Nursing assessment & vital signs reviewed: Yes EKG Interpreted by Me: RATE (66/min), NORMAL AXIS, NORMAL INTERVALS, Non- specific ST Changes, Other (unchanged from 11/01/16) - Radiology Exams Chest X-ray Interpretation: Interpreted by me, Negative Ordered Tests: Active Orders 24 hr Category Date Time Status House Manager STAT Care 10/03/17 17:13 Active EKG-ER Only STAT Care 10/03/17 17:12 Active IV Insertion STAT Care 10/03/17 17:12 Active Oxygen-ED Only NASAL CANNULA 2 lpm Care 10/03/17 17:12 Active ABDOMEN AND PELVIS W CONTRAST [CT] Stat Exams 10/03/17 18:34 Completed CHEST 1 VIEW (PORTABLE) Stat Exams 10/03/17 17:13 Completed CBC W DIFF Stat Lab 10/03/17 17:15 Completed CK-Creatinine Phosphokinase Stat Lab 10/03/17 17:15 Completed CMP Stat Lab 10/03/17 17:15 Completed D-DIMER QUANTITATION Stat Lab 10/03/17 17:15 Completed LIPASE Stat Lab 10/03/17 17:15 Completed NT PRO BNP Stat Lab 10/03/17 17:15 Completed TROPONIN Q3H Lab 10/03/17 17:15 Completed TROPONIN Q3H Lab 10/03/17 20:11 Completed TROPONIN Q3H Lab 10/03/17 23:15 Ordered TROPONIN Q3H Lab 10/04/17 02:15 Ordered TROPONIN Q3H Lab 10/04/17 05:15 Ordered Medication Summary Generic Name Dose Route Start Last Admin Trade Name Freq PRN Reason Stop Dose Admin Sodium Chloride 1,000 mls @ 999 mls/hr 10/03/17 20:16 10/03/17 20:24 Sodium Chloride 0.9% 1000 Ml IV 10/03/17 21:16 999 mls/hr .Q1H1M STA Administration Discontinued Medications Generic Name Dose Route Start Last Admin Trade Name Freq PRN Reason Stop Dose Admin Al Hydrox/Mg Hydrox/Simethicone Confirm 10/03/17 17:54 Maalox Es 30 Ml Unit Dose Administered 10/03/17 17:55 Dose 30 ml .ROUTE .STK-MED ONE Famotidine 20 mg 10/03/17 17:14 10/03/17 17:57 Pepcid 20 Mg Vial IV 10/03/17 17:15 20 mg STAT ONE Administration Famotidine Confirm 10/03/17 17:53 Pepcid 20 Mg Vial Administered 10/03/17 17:54 Dose 20 mg IV .STK-MED ONE Sodium Chloride Confirm 10/03/17 20:21 Sodium Chloride 0.9% 1000 Ml Administered 10/03/17 20:22 Dose 1,000 mls @ ud .ROUTE .STK-MED ONE Lidocaine HCl Confirm 10/03/17 17:54 Xylocaine Hcl Viscous * Administered 10/03/17 17:55 Dose 15 ml .ROUTE .STK-MED ONE Magnesium Hydroxide 45 ml 10/03/17 17:14 10/03/17 17:57 Gi Cocktail 45 Ml (Maalox/Lidocaine) PO 10/03/17 17:15 45 ml STAT ONE Administration Lab/Rad Data: Laboratory Result Diagrams 10/03/17 17:15 10/03/17 17:15 Laboratory Results 10/03/17 10/03/17 10/03/17 Range/Units 20:11 17:15 17:15 WBC (4.0-10.5) K/mm3 RBC (4.1-5.4) M/mm3 Hgb (12.0-16.0) gm/dl Hct (35-47) % MCV (78-100) fl MCH (26-32) pg MCHC (32-36) g/dl RDW (11.5-14.0) % Plt Count (150-450) K/mm3 MPV (6-9.5) fl Gran % (36.0-66.0) % Eos # (Auto) (0-0.5) Absolute Lymphs (auto) (1.0-4.6) Absolute Monos (auto) (0.0-1.3) Lymphocytes % (24.0-44.0) % Monocytes % (0.0-12.0) % Eosinophils % (0.00-5.0) % Basophils % (0.0-0.4) % Absolute Granulocytes (1.4-6.9) Basophils # (0-0.4) D-Dimer 374 (215-500) ng/mL Sodium (137-145) mmol/L Potassium (3.5-5.1) mmol/L Chloride (98-107) mmol/L Carbon Dioxide (22-30) mmol/L Anion Gap (5-15) MEQ/L BUN (7-17) mg/dL Creatinine (0.52-1.04) mg/dL Estimated GFR ML/MIN Glucose (74-106) mg/dL Calcium (8.4-10.2) mg/dL Total Bilirubin (0.2-1.3) mg/dL AST (14-36) U/L ALT (0-35) U/L Alkaline Phosphatase (38-126) U/L Creatine Kinase (30-135) U/L Troponin I < 0.012 < 0.012 (0.000-0.034) ng/mL NT-Pro-B Natriuret Pep (0-900) pg/mL Serum Total Protein (6.3-8.2) g/dL Albumin (3.5-5.0) g/dL Lipase (23-300) U/L 10/03/17 10/03/17 Range/Units 17:15 17:15 WBC 10.1 (4.0-10.5) K/mm3 RBC 4.22 (4.1-5.4) M/mm3 Hgb 13.6 (12.0-16.0) gm/dl Hct 37.7 (35-47) % MCV 89.3 (78-100) fl MCH 32.2 H (26-32) pg MCHC 36.1 H (32-36) g/dl RDW 12.0 (11.5-14.0) % Plt Count 211 (150-450) K/mm3 MPV 9.2 (6-9.5) fl Gran % 66.3 H (36.0-66.0) % Eos # (Auto) 0.11 (0-0.5) Absolute Lymphs (auto) 2.47 (1.0-4.6) Absolute Monos (auto) 0.81 (0.0-1.3) Lymphocytes % 24.4 (24.0-44.0) % Monocytes % 8.0 (0.0-12.0) % Eosinophils % 1.1 (0.00-5.0) % Basophils % 0.2 (0.0-0.4) % Absolute Granulocytes 6.71 (1.4-6.9) Basophils # 0.02 (0-0.4) D-Dimer (215-500) ng/mL Sodium 133 L (137-145) mmol/L Potassium 3.3 L (3.5-5.1) mmol/L Chloride 96 L (98-107) mmol/L Carbon Dioxide 26 (22-30) mmol/L Anion Gap 15.0 (5-15) MEQ/L BUN 17 (7-17) mg/dL Creatinine 0.69 (0.52-1.04) mg/dL Estimated GFR > 60.0 ML/MIN Glucose 107 H (74-106) mg/dL Calcium 9.6 (8.4-10.2) mg/dL Total Bilirubin 0.80 (0.2-1.3) mg/dL AST 42 H (14-36) U/L ALT 37 H (0-35) U/L Alkaline Phosphatase 73 (38-126) U/L Creatine Kinase 59 (30-135) U/L Troponin I (0.000-0.034) ng/mL NT-Pro-B Natriuret Pep 86.3 (0-900) pg/mL Serum Total Protein 7.6 (6.3-8.2) g/dL Albumin 4.5 (3.5-5.0) g/dL Lipase 785 H (23-300) U/L - Departure Clinical Impression: Epigastric pain Pancreatitis Qualifiers: Chronicity: acute Pancreatitis type: unspecified pancreatitis type Acute pancreatitis complication: unspecified Qualified Code(s): K85.90 - Acute pancreatitis without necrosis or infection, unspecified Condition: Fair Referrals: CESAR DIEHL [Primary Care Provider] - Additional Instructions: Return home. Plenty of fluids clear fluids only 24-48 hours if abdominal pain, nausea, or vomiting. No fatty foods, no alcohol. [place] as prescribed. Follow-up with Dr. Diehl call in the morning to arrange follow-up appointment. Return for acute distress or for severe symptoms. Prescriptions: Hydrocodone/Acetaminophen [[place] 5-325 Tablet] 1 tab PO Q4-6HPRN PRN #10 tablet MDD 6 tablets PRN Reason: Pain <FLORENCIA NYE - Last Filed: 10/03/17 21:17> - CT Exams Abdomen/Pelvis CT Interpretation: Tele-radiologist Report (EKG: Impression: 1. Small hiatal hernia 2. Colonic diverticulosis without evidence of diverticulitis 3. Cholecystectomy 4. Normal appendix) - Progress Progress: improved Air Movement: fair Progress Note: 10/03/17 21:09 This is a 71-year-old white female who was initially seen by Dr. Guardado with history of peripheral neuropathy hypercholesterolemia high blood pressure She had been complaining of a 2 days of pain off and on which has been in her back on her arms and in the epigastric region She apparently recently has been treated for a UTI she states she took some Tylenol 3 and it made the pain that she was having worse. On arrival she was seen by Dr. Guardado at that time she was stating she was complaining of pain in her epigastric region Patient had a normal EKG with normal sinus rhythm 66 bpm normal axis no acute ST or T wave changes essentially normal EKG Patient had a normal chest x-ray Patient had a CT of her abdomen and pelvis which showed a small hiatal hernia, colonic diverticulosis without evidence of diverticulitis, cholecystectomy, and normal appendix patient's physical exam: HEENT within normal limits, heart regular rate and rhythm without murmer, lungs clear equal bilaterally. Abdomen soft mild epigastric tenderness positive bowel sounds no rebound, extremities full range of motion pulses equal and symmetrical 2 over 4, neuro patient alert oriented 3 cranial nerves II through XII intact Patient's labs showed white count of 10.1 hemoglobin 13.6 hematocrit 37.7 d- dimer 374, chemistry essentially normal with the exception of a lipase of 785 AST was slightly elevated at 42 normal 14 a 36 ALT 37 normal 0-35 patient was given Mylanta and Pepcid by and 1 L of normal saline by me IV. Patient states she is feeling better she still has occasional pain in the right upper quadrant she has not been vomiting and states she is not nauseous. I've discussed the case with both the patient and Dr. Wallace. Dr. Wallace felt that the patient could either go home or be placed on IV fluids and follow-up with Dr. Diehl. I have presented both to the patient and at this point in time she prefers to go home. She did state that she felt worse when she took Tylenol 3. Will go ahead and write for some [place] for the patient. She is to return home. She is to drink plenty of fluids clear fluids only 24-48 hours if abdominal pain nausea or vomiting. She is to take [place] as prescribed. She is to contact Dr. Diehl tomorrow and arrange for a follow-up appointment. She is to return for acute distress or for severe symptoms. 10/03/17 21:14 - Departure Time of Disposition: 21:13 Departure Disposition: Home Critical Care Time: No
[2017-10-03 17:23] LABS: BASOPHIL % 0.2 % (0.0-0.4); Basophil (Absolute #) 0.02 (0-0.4); Eosinophil % 1.1 % (0.00-5.0); Eosinophil (Absolute #) 0.11 (0-0.5); Granulocyte Absolute (ANC) 6.71 (1.4-6.9); Granulocytes % 66.3 % (36.0-66.0); Hematocrit 37.7 % (35-47); Hemoglobin 13.6 gm/dl (12.0-16.0); Lymphocyte (Absolute #) 2.47 (1.0-4.6); Lymphocytes % 24.4 % (24.0-44.0); Mean Cell Volume 89.3 fl (78-100); Mean Corpuscular Hemoglobin 32.2 pg (26-32); Mean Corpuscular Hgb Concent. 36.1 g/dl (32-36); Mean Platelet Volume 9.2 fl (6-9.5); Monocyte (Absolute #) 0.81 (0.0-1.3); Platelet Count 211 K/mm3 (150-450); Red Blood Count 4.22 M/mm3 (4.1-5.4); White Blood Count 10.1 K/mm3 (4.0-10.5)
[2017-10-03 17:41] LABS: ALBUMIN 4.5 g/dL (3.5-5.0); ALKALINE PHOSPHATASE 73 U/L (38-126); BLOOD UREA NITROGEN 17 mg/dL (7-17); CHLORIDE 96 mmol/L (98-107); CK-Creatinine Phosphokinase 59 U/L (30-135); Calcium 9.6 mg/dL (8.4-10.2); Carbon Dioxide 26 mmol/L (22-30); Creatinine 1 0.69 mg/dL (0.52-1.04); Glucose 107 mg/dL (74-106); LIPASE 785 U/L (23-300); Potassium 3.3 mmol/L (3.5-5.1); SGOT/AST 42 U/L (14-36); SGPT/ALT 37 U/L (0-35); SODIUM 133 mmol/L (137-145); Total Protein 7.6 g/dL (6.3-8.2)
[2017-10-03 17:49] LABS: NT PRO BNP 86.3 pg/mL (0-900)
[2017-10-03] MEDS ORDERED: MAALOX ES 30 ML UNIT DOSE ONE (17:54)
[2017-10-03] MEDS ORDERED: XYLOCAINE HCl Viscous ONE (17:54)
[2017-10-03] MEDS ORDERED: Sodium Chloride 0.9% 1000 ML 1,000 ML IV STA (20:16)
[2017-10-03] MEDS ORDERED: Sodium Chloride 0.9% 1000 ML 1,000 ML ONE (20:21)
--- NOTE | 2017-10-03 20:58 | XRAY ---
Indication: Epigastric pain. Elevated lipase. Possible pancreatitis. Current treatment for kidney infection. Multiple contiguous axial images obtained through the abdomen and pelvis using 80 cc Isovue 370 contrast only. Comparison: November 01, 2016. Lung bases are essentially clear. Heart is not enlarged. Stable small hiatal hernia Noncontrasted stomach and bowel loops appear nonobstructed. Normal appendix. Stable mild scattered colonic diverticulosis without diverticulitis. Again previous cholecystectomy and hysterectomy. No free fluid/air. There remains a few hepatic calcified granulomass Remaining liver, pancreas, spleen, adrenal glands, kidneys, ureters, and bladder appear unremarkable. Minimal aortic calcifications. No AAA or pathologic retroperitoneal lymphadenopathy. Osseous structures intact again with mild degenerative changes throughout the spine and both hips. No ventral or inguinal hernias. Impression: 1. Stable colonic diverticulosis without diverticulitis and small hiatal hernia. 2. No new or acute intra-abdominal or pelvic abnormalities. 3. Remaining CT abdomen/pelvis with contrast exam is negative. Comment: Preliminary interpretation was made by [facility]. No critical discrepancy. CTDI 19.03
--- NOTE | 2017-10-03 21:00 | XRAY ---
Indication: Chest pain. Comparison: September 11, 2013. Portable chest again demonstrates normal heart and lungs. Bony thorax intact again with mild osteopenia and degenerative changes. No new/acute findings. Impression: Stable nonacute chest with chronic features.
[2017-10-03] MEDS ORDERED: NORCO 5/325 MG PO ONE (21:17)
[2017-10-03] MEDS ORDERED: NORCO 5/325 MG ONE (21:30)
[2017-10-03 21:38] VITALS: BP 164/110; PULSE 66; O2SAT 98
== END 2017-10-03 21:35 | disposition home or self-care (01) ==
LOC: ED 16:56
DX: K85.90 Acute pancreatitis without necrosis or infection, unspecified (principal); R10.13 Epigastric pain; Z79.899 Other long term (current) drug therapy; K44.9 Diaphragmatic hernia without obstruction or gangrene; K57.30 Diverticulosis of large intestine without perforation or abscess without bleeding
CPT/HCPCS: 36000; 36415; 71045; 74177; 80053; 82550; 83690; 83880; 84484; 85025; 85379; 93005; 93041; 96360; 96374; 99285; A9270-GY

== ENCOUNTER 2017-11-07 19:40 | Emergency (ER) | payer MEDICARE ==
--- NOTE | 2017-11-07 20:55 | ERPHSYRPT ---
- History of Present Illness Time Seen by Provider: 11/07/17 20:50 Historian: patient Exam Limitations: no limitations Patient Subjective Stated Complaint: pt states she has been having rt mid back pain since yesterday. Triage Nursing Assessment: pt alert and oriented, asnwers questions approp. pt ambulatory with steady gait noted. respirations nonlabored with lungs cta. skin pink warm and dry. mild tenderness noted to rt mid back. Physician History: pt has hx pancreatitis a month ago with back pain and now has it on right side and also rt flank and prior kidney infections no trauma; no vomiting; no fever; no CP ; but on agrenox to prevent CVA; no DM Timing/Duration: today Activities at Onset: none Quality: fullness, sharpness Abdominal Pain Onset Location: flank Pain Radiation: flank, back Severity of Pain-Max: moderate Severity of Pain-Current: moderate Modifying Factors: Improves With: nothing Associated Symptoms: back Previous symptoms: same symptoms as today, recently treated Allergies/Adverse Reactions: No Known Drug Allergies Allergy (Verified 11/07/17 20:22) Home Medications: Atorvastatin Calcium [Lipitor 20MG Tablet] 20 mg PO HS 10/24/15 [History] Carvedilol 6.25 mg [Coreg 6.25 MG] 12.5 mg PO BID 10/24/15 [History] Amlodipine Besylate 5 mg PO DAILY 09/05/17 [History] Aspirin/Dipyridamole [Aspirin-Dipyridam ER 25-200 mg] 25 mg PO DAILY 09/05/17 [ History] Olmesartan Medoxomil 20 mg [Benicar 20 MG] 20 mg .ROUTE DAILY 09/28/17 [ History] Hx Tetanus, Diphtheria Vaccination/Date Given: No Hx Influenza Vaccination/Date Given: Yes Hx Pneumococcal Vaccination/Date Given: Yes Immunizations Up to Date: No - Review of Systems Constitutional: No Fever, No Chills Eyes: No Symptoms Ears, Nose, & Throat: No Symptoms Respiratory: No Cough, No Dyspnea Cardiac: No Chest Pain, No Edema, No Syncope Abdominal/Gastrointestinal: Abdominal Pain, No Nausea, No Vomiting, No Diarrhea Genitourinary Symptoms: No Dysuria Musculoskeletal: Back Pain, No Neck Pain Skin: No Rash Neurological: No Dizziness, No Focal Weakness, No Sensory Changes Psychological: No Symptoms Endocrine: No Symptoms All Other Systems: Reviewed and Negative - Past Medical History Pertinent Past Medical History: Yes Neurological History: Peripheral Neuropathy ENT History: No Pertinent History Cardiac History: High Cholesterol, Hypertension Respiratory History: No Pertinent History Endocrine Medical History: No Pertinent History Musculoskeletal History: No Pertinent History GI Medical History: No Pertinent History History: No Pertinent History Psycho-Social History: No Pertinent History Female Reproductive Disorders: No Pertinent History Other Medical History: left leg - neuropathy - Past Surgical History Past Surgical History: Yes Neuro Surgical History: No Pertinent History Cardiac: No Pertinent History Respiratory: No Pertinent History Gastrointestinal: Cholecystectomy Genitourinary: No Pertinent History Musculoskeletal: No Pertinent History Female Surgical History: Hysterectomy Other Surgical History: partial hysterectomy. a/p repair for fallen bladder - Social History Smoking Status: Never smoker Exposure to second hand smoke: No Drug Use: none Patient Lives Alone: No - Nursing Vital Signs Nursing Vital Signs: Initial Vital Signs Temperature 98.4 F 11/07/17 20:06 Pulse Rate 68 11/07/17 20:06 Respiratory Rate 18 11/07/17 20:06 Blood Pressure 147/81 11/07/17 20:06 O2 Sat by Pulse Oximetry 98 11/07/17 20:06 Pain Scale Pain Intensity 0 - Physical Exam General Appearance: no apparent distress, alert Eye Exam: PERRL/EOMI, eyes nml inspection Ears, Nose, Throat Exam: normal ENT inspection, pharynx normal, moist mucous membranes Neck Exam: normal inspection, non-tender, supple, full range of motion Respiratory Exam: normal breath sounds, lungs clear, No respiratory distress Cardiovascular Exam: regular rate/rhythm, normal heart sounds Gastrointestinal/Abdomen Exam: soft, No tenderness, No mass Back Exam: normal inspection, normal range of motion, No CVA tenderness, No vertebral tenderness Extremity Exam: normal inspection, normal range of motion, pelvis stable Neurologic Exam: alert, oriented x 3, cooperative, normal mood/affect, nml cerebellar function, sensation nml, No motor deficits Skin Exam: normal color, warm, dry SpO2: 98 Oxygen Delivery: Room Air - Course Nursing assessment & vital signs reviewed: Yes EKG Interpreted by Me: Sinus Rhythm, NORMAL AXIS, NORMAL QRS, Non-specific ST Changes Ordered Tests: Active Orders 24 hr Category Date Time Status Clean Catch Urine Specimen STAT Care 11/07/17 20:03 Active EKG-ER Only STAT Care 11/07/17 20:56 Active IV Insertion STAT Care 11/07/17 20:17 Active AMYLASE Stat Lab 11/07/17 20:56 Completed CBC W DIFF Stat Lab 11/07/17 20:56 Completed CMP Stat Lab 11/07/17 20:56 Completed LIPASE Stat Lab 11/07/17 20:56 Completed Lactic Acid Stat Lab 11/07/17 20:56 Completed TROPONIN Q3H Lab 11/07/17 21:00 Completed TROPONIN Q3H Lab 11/08/17 00:00 Ordered TROPONIN Q3H Lab 11/08/17 03:00 Ordered TROPONIN Q3H Lab 11/08/17 06:00 Ordered TROPONIN Q3H Lab 11/08/17 09:00 Ordered UA W/ MICROSCOPIC Stat Lab 11/07/17 21:12 Completed Medication Summary Generic Name Dose Route Start Last Admin Trade Name Freq PRN Reason Stop Dose Admin Sodium Chloride 1,000 mls @ 50 mls/hr 11/07/17 21:00 11/07/17 21:05 Sodium Chloride 0.9% 1000 Ml IV 12/07/17 20:59 50 mls/hr .Q20H AJ Administration Discontinued Medications Generic Name Dose Route Start Last Admin Trade Name Freq PRN Reason Stop Dose Admin Pantoprazole Sodium 40 mg 11/07/17 20:56 11/07/17 21:05 Protonix 40 Mg Iv IV 11/07/17 20:57 40 mg STAT ONE Administration Pantoprazole Sodium Confirm 11/07/17 21:01 Protonix 40 Mg Iv Administered 11/07/17 21:02 Dose 40 mg IV .[facility] Lab/Rad Data: Laboratory Result Diagrams 11/07/17 20:56 11/07/17 20:56 Laboratory Results 11/07/17 11/07/17 11/07/17 Range/Units 21:12 21:00 20:56 WBC (4.0-10.5) K/mm3 RBC (4.1-5.4) M/mm3 Hgb (12.0-16.0) gm/dl Hct (35-47) % MCV (78-100) fl MCH (26-32) pg MCHC (32-36) g/dl RDW (11.5-14.0) % Plt Count (150-450) K/mm3 MPV (6-9.5) fl Gran % (36.0-66.0) % Eos # (Auto) (0-0.5) Absolute Lymphs (auto) (1.0-4.6) Absolute Monos (auto) (0.0-1.3) Lymphocytes % (24.0-44.0) % Monocytes % (0.0-12.0) % Eosinophils % (0.00-5.0) % Basophils % (0.0-0.4) % Absolute Granulocytes (1.4-6.9) Basophils # (0-0.4) Sodium 135 L (137-145) mmol/L Potassium 3.7 (3.5-5.1) mmol/L Chloride 99 (98-107) mmol/L Carbon Dioxide 26 (22-30) mmol/L Anion Gap 14.0 (5-15) MEQ/L BUN 12 (7-17) mg/dL Creatinine 0.59 (0.52-1.04) mg/dL Estimated GFR > 60.0 ML/MIN Glucose 101 (74-106) mg/dL Lactic Acid (0.4-2.0) Calcium 9.7 (8.4-10.2) mg/dL Total Bilirubin 1.30 (0.2-1.3) mg/dL AST 57 H (14-36) U/L ALT 62 H (0-35) U/L Alkaline Phosphatase 71 (38-126) U/L Troponin I < 0.012 (0.000-0.034) ng/mL Serum Total Protein 7.2 (6.3-8.2) g/dL Albumin 4.5 (3.5-5.0) g/dL Amylase 53 (30-110) U/L Lipase 48 (23-300) U/L Ur Collection Type VOID Urine Color LT.YELLOW (YELLOW) Urine Appearance CLEAR (CLEAR) Urine pH 7.0 (5-6) Ur Specific [place] 1.000 (1.005-1.025) Urine Protein NEGATIVE (Negative) Urine Ketones NEGATIVE (NEGATIVE) Urine Blood TRACE NON-HEM (0-5) Иван/ul Urine Nitrite NEGATIVE (NEGATIVE) Urine Bilirubin NEGATIVE (NEGATIVE) Urine Urobilinogen NORMAL (0-1) mg/dL Ur Leukocyte Esterase 1+ (NEGATIVE) Urine Microscopic RBC 0-2 (0-2) /HPF Ur Epithelial Cells RARE (FEW) /HPF Urine Culture Reflexed NO (NO) Urine Glucose NEGATIVE (NEGATIVE) mg/dL Specimen Received 11/07/17 2200 11/07/17 11/07/17 Range/Units 20:56 20:56 WBC 9.2 (4.0-10.5) K/mm3 RBC 4.05 L (4.1-5.4) M/mm3 Hgb 13.0 (12.0-16.0) gm/dl Hct 37.2 (35-47) % MCV 91.9 (78-100) fl MCH 32.0 (26-32) pg MCHC 34.9 (32-36) g/dl RDW 11.8 (11.5-14.0) % Plt Count 213 (150-450) K/mm3 MPV 10.0 H (6-9.5) fl Gran % 67.8 H (36.0-66.0) % Eos # (Auto) 0.15 (0-0.5) Absolute Lymphs (auto) 2.12 (1.0-4.6) Absolute Monos (auto) 0.68 (0.0-1.3) Lymphocytes % 23.0 L (24.0-44.0) % Monocytes % 7.4 (0.0-12.0) % Eosinophils % 1.6 (0.00-5.0) % Basophils % 0.2 (0.0-0.4) % Absolute Granulocytes 6.26 (1.4-6.9) Basophils # 0.02 (0-0.4) Sodium (137-145) mmol/L Potassium (3.5-5.1) mmol/L Chloride (98-107) mmol/L Carbon Dioxide (22-30) mmol/L Anion Gap (5-15) MEQ/L BUN (7-17) mg/dL Creatinine (0.52-1.04) mg/dL Estimated GFR ML/MIN Glucose (74-106) mg/dL Lactic Acid 1.5 (0.4-2.0) Calcium (8.4-10.2) mg/dL Total Bilirubin (0.2-1.3) mg/dL AST (14-36) U/L ALT (0-35) U/L Alkaline Phosphatase (38-126) U/L Troponin I (0.000-0.034) ng/mL Serum Total Protein (6.3-8.2) g/dL Albumin (3.5-5.0) g/dL Amylase (30-110) U/L Lipase (23-300) U/L Ur Collection Type Urine Color (YELLOW) Urine Appearance (CLEAR) Urine pH (5-6) Ur Specific [place] (1.005-1.025) Urine Protein (Negative) Urine Ketones (NEGATIVE) Urine Blood (0-5) Иван/ul Urine Nitrite (NEGATIVE) Urine Bilirubin (NEGATIVE) Urine Urobilinogen (0-1) mg/dL Ur Leukocyte Esterase (NEGATIVE) Urine Microscopic RBC (0-2) /HPF Ur Epithelial Cells (FEW) /HPF Urine Culture Reflexed (NO) Urine Glucose (NEGATIVE) mg/dL Specimen Received - Progress Progress: improved, re-examined Progress Note: 11/07/17 23:42 discussed risk and benefit of new CT and pt wishes to avoid at this time which is reasonable ; abd is soft and nontender and pt feels hungry and no N or V; Pt understand that we have not determined a cause for her pain and that undetected pathology may be evolving, and need for f/u - pt choses DC with outpt f/u to further w/u in EER or admission at this time after discussion of risks/ benefits - advised of elevated LFTs and LE and pt wishes to go on AB for possible UTI and f/u PCP; 11/07/17 23:45 Counseled pt/family regarding: lab results, diagnosis, need for follow-up, rad results - Departure Time of Disposition: 23:46 Departure Disposition: Home Clinical Impression: Abdominal pain, UTI (urinary tract infection), Hypertension, Back pain, abdominal /back pain of unknown etiology Condition: Good Critical Care Time: No Referrals: CESAR VALE [Primary Care Provider] - Instructions: Low Back Pain (DC), Urinary Tract Infections in Adults, Acute Abdomen (Belly Pain), Adult (DC) Additional Instructions: we have not determined a cause for your pain and therefore a problem may still be evolving . Followup with your Dr for further testing such as MRI may help. As discussed we will treat with a mild antibiotic for the urine and you should also see your Dr for this and to recheck the liver tests; return meantime if increased pain, cough , fever, vomiting or other concerns; Prescriptions: Nitrofurantoin Macro 100 mg [Macrobid 100MG Capsule] 100 mg PO BID 10 Days #20 cap
[2017-11-07] MEDS ORDERED: PROTONIX 40 MG IV IV ONE ×2 (20:56→21:01)
[2017-11-07] MEDS ORDERED: Sodium Chloride 0.9% 1000 ML 1,000 ML IV SCH (21:00)
[2017-11-07] MEDS ORDERED: Sodium Chloride 0.9% 1000 ML 1,000 ML ONE (21:01)
[2017-11-07 21:34] LABS: BASOPHIL % 0.2 % (0.0-0.4); Basophil (Absolute #) 0.02 (0-0.4); Red Cell Distribution Width 11.8 % (11.5-14.0); White Blood Count 9.2 K/mm3 (4.0-10.5)
[2017-11-07 22:09] LABS: ALBUMIN 4.5 g/dL (3.5-5.0); ALKALINE PHOSPHATASE 71 U/L (38-126); AMYLASE 53 U/L (30-110); BLOOD UREA NITROGEN 12 mg/dL (7-17); CHLORIDE 99 mmol/L (98-107); Calcium 9.7 mg/dL (8.4-10.2); Carbon Dioxide 26 mmol/L (22-30); Creatinine 1 0.59 mg/dL (0.52-1.04); Glucose 101 mg/dL (74-106); LIPASE 48 U/L (23-300); Potassium 3.7 mmol/L (3.5-5.1); SGOT/AST 57 U/L (14-36); SGPT/ALT 62 U/L (0-35); SODIUM 135 mmol/L (137-145); Total Protein 7.2 g/dL (6.3-8.2)
[2017-11-07 22:26] LABS: Eosinophil % 1.6 % (0.00-5.0); Eosinophil (Absolute #) 0.15 (0-0.5); Granulocyte Absolute (ANC) 6.26 (1.4-6.9); Granulocytes % 67.8 % (36.0-66.0); Hematocrit 37.2 % (35-47); Lymphocyte (Absolute #) 2.12 (1.0-4.6); Mean Cell Volume 91.9 fl (78-100); Mean Corpuscular Hgb Concent. 34.9 g/dl (32-36); Monocyte (Absolute #) 0.68 (0.0-1.3); Monocytes % 7.4 % (0.0-12.0); Platelet Count 213 K/mm3 (150-450); Red Blood Count 4.05 M/mm3 (4.1-5.4)
[2017-11-07 22:36] LABS: Appearance CLEAR (CLEAR); Bilirubin NEGATIVE (NEGATIVE); Blood TRACE NON-HEM Ery/ul (0-5); Glucose NEGATIVE (NEGATIVE); Ketones NEGATIVE (NEGATIVE); Leukocyte Esterase 1+ (NEGATIVE); Nitrite NEGATIVE (NEGATIVE); Protein,Urine Dip NEGATIVE (Negative); Urobilinogen NORMAL mg/dL (0-1)
[2017-11-07 22:37] LABS: Epithelial Cells RARE /HPF (FEW); RBC 0-2 /HPF (0-2)
[2017-11-07 23:10] VITALS: O2SAT 98
[2017-11-07 23:52] VITALS: BP 143/78; PULSE 55
== END 2017-11-08 00:04 | disposition home or self-care (01) ==
LOC: ED 19:40
DX: R10.9 Unspecified abdominal pain (principal); N39.0 Urinary tract infection, site not specified; I10 Essential (primary) hypertension; M54.9 Dorsalgia, unspecified; Z79.82 Long term (current) use of aspirin; Z79.899 Other long term (current) drug therapy
CPT/HCPCS: 36000; 36415; 80053; 81000; 82150; 83605; 83690; 84484; 85025; 93005; 96365; 96366; 96374; 99284

== ENCOUNTER 2018-07-13 10:57 | Emergency (ER) | payer MEDICARE ==
--- NOTE | 2018-07-13 11:43 | ERPHSYRPT ---
- History of Present Illness Time Seen by Provider: 07/13/18 11:38 Source: patient Exam Limitations: no limitations Patient Subjective Stated Complaint: pt states went to [facility] yesterday and diagnosed with a UTI. started on cephalexing TID. last night back started hurting in mid upper back rated 10/10 and couldn't hardly sleep, pain relieved when got out of bed, denies any injury caused from lifting or turning. went to chiropacter on thursday and helped her shoulder pain. pain currently 5/10, burning pain that varies in intensity Triage Nursing Assessment: A/O X4, speech clear, c/o pain 5/10 mid back. skin pink, warm and dry. resp easy. lung CTA. no bruising, redness or s/s of injury to back. no swelling noted. Physician History: 72 y/o white female presents with upper back pain for 3 to 4 days. pain worse last pm. pt seen at [facility] yesterday and tx for uti. sx worse. no acute injjury. pt occas has cp. pt given rx for keflex Timing/Duration: day(s) (3 to 4), worse Method of Injury: other (no acute injury) Quality: sharp, stabbing Back Pain Location: T-spine Severity of Pain-Max: mild Severity of Pain-Current: moderate Modifying Factors: Improves With: other (worse when lying down) Associated Symptoms: denies symptoms Previous symptoms: no prior history Allergies/Adverse Reactions: No Known Drug Allergies Allergy (Verified 11/07/17 20:22) Home Medications: Atorvastatin Calcium [Lipitor 20MG Tablet] 20 mg PO HS 10/24/15 [History] Carvedilol 6.25 mg [Coreg 6.25 MG] 12.5 mg PO BID 10/24/15 [History] Amlodipine Besylate 5 mg PO DAILY 09/05/17 [History] Aspirin/Dipyridamole [Aspirin-Dipyridam ER 25-200 mg] 25 mg PO DAILY 09/05/17 [ History] Olmesartan Medoxomil 20 mg [Benicar 20 MG] 20 mg .ROUTE DAILY 09/28/17 [ History] Cephalexin Mh 250 mg [Keflex 250 mg] 250 mg PO TID 07/13/18 [History] Hx Tetanus, Diphtheria Vaccination/Date Given: Yes Hx Influenza Vaccination/Date Given: Yes Hx Pneumococcal Vaccination/Date Given: Yes Immunizations Up to Date: Yes - Review of Systems Constitutional: No Symptoms Eyes: No Symptoms Ears, Nose, & Throat: No Symptoms Respiratory: No Symptoms Cardiac: No Symptoms Abdominal/Gastrointestinal: No Symptoms Genitourinary Symptoms: No Symptoms Musculoskeletal: Back Pain (upper) Skin: No Symptoms Neurological: No Symptoms Psychological: No Symptoms Endocrine: No Symptoms Hematologic/Lymphatic: No Symptoms Immunological/Allergic: No Symptoms All Other Systems: Reviewed and Negative - Past Medical History Pertinent Past Medical History: Yes Neurological History: Peripheral Neuropathy ENT History: No Pertinent History Cardiac History: High Cholesterol, Hypertension Respiratory History: No Pertinent History Endocrine Medical History: No Pertinent History Musculoskeletal History: No Pertinent History GI Medical History: No Pertinent History History: No Pertinent History Psycho-Social History: No Pertinent History Female Reproductive Disorders: No Pertinent History Other Medical History: left leg - neuropathy - Past Surgical History Past Surgical History: Yes Neuro Surgical History: No Pertinent History Cardiac: No Pertinent History Respiratory: No Pertinent History Gastrointestinal: Cholecystectomy Genitourinary: No Pertinent History Musculoskeletal: No Pertinent History Female Surgical History: Hysterectomy Other Surgical History: partial hysterectomy. a/p repair for fallen bladder - Social History Smoking Status: Never smoker Exposure to second hand smoke: No Drug Use: none Patient Lives Alone: No - Female History Hx Now: No - Nursing Vital Signs Nursing Vital Signs: Initial Vital Signs Temperature 97.8 F 07/13/18 10:57 Pulse Rate 70 07/13/18 10:57 Respiratory Rate 18 07/13/18 10:57 Blood Pressure 181/84 07/13/18 10:57 O2 Sat by Pulse Oximetry 97 07/13/18 10:57 Pain Scale Pain Intensity [Upper 5 Posterior Back] Pain Intensity 5 - Physical Exam General Appearance: mild distress, alert, anxiety Eye Exam: PERRL/EOMI Ears, Nose, Throat Exam: normal ENT inspection, moist mucous membranes Neck Exam: normal inspection, non-tender, supple, full range of motion Respiratory Exam: normal breath sounds, lungs clear, airway intact, No chest tenderness, No respiratory distress Cardiovascular Exam: regular rate/rhythm, normal heart sounds, normal peripheral pulses Gastrointestinal Exam: soft, normal bowel sounds, No tenderness, No guarding, No rebound Pelvic Exam: not done Rectal Exam: not done Back Exam: normal inspection, normal range of motion, No CVA tenderness, No vertebral tenderness Extremity Exam: normal inspection, normal range of motion, pelvis stable Neurologic Exam: alert, oriented x 3, cooperative, offal trimmer II-XII nml as tested, normal mood/affect Skin Exam: normal color, warm, dry Lymphatic Exam: No adenopathy SpO2: 97 O2 Delivery: Room Air - Course Nursing assessment & vital signs reviewed: Yes Ordered Tests: Active Orders 24 hr Category Date Time Status Child And Youth Program Assistant STAT Care 07/13/18 11:43 Active EKG-ER Only STAT Care 07/13/18 11:43 Active IV Insertion STAT Care 07/13/18 11:43 Active Pulse Oximetry (ED) STAT Care 07/13/18 11:43 Active CHEST 1 VIEW (PORTABLE) Stat Exams 07/13/18 11:43 Completed CBC W DIFF Stat Lab 07/13/18 11:45 Completed CMP Stat Lab 07/13/18 11:45 Received D-DIMER QUANTITATION Stat Lab 07/13/18 11:45 Completed NT PRO BNP Stat Lab 07/13/18 11:45 Received TROPONIN Q3H Lab 07/13/18 11:45 Completed TROPONIN Q3H Lab 07/13/18 14:45 Ordered TROPONIN Q3H Lab 07/13/18 17:45 Ordered TROPONIN Q3H Lab 07/13/18 20:45 Ordered TROPONIN Q3H Lab 07/13/18 23:45 Ordered Lab/Rad Data: Laboratory Result Diagrams 07/13/18 11:45 Laboratory Results 07/13/18 07/13/18 07/13/18 Range/Units 11:45 11:45 11:45 WBC 10.2 (4.0-10.5) K/mm3 RBC 4.14 (4.1-5.4) M/mm3 Hgb 12.9 (12.0-16.0) gm/dl Hct 38.7 (35-47) % MCV 93.5 (78-100) fl MCH 31.2 (26-32) pg MCHC 33.3 (32-36) g/dl RDW 12.2 (11.5-14.0) % Plt Count 236 (150-450) K/mm3 MPV 9.3 (6-9.5) fl Gran % 72.4 H (36.0-66.0) % Eos # (Auto) 0.26 (0-0.5) Absolute Lymphs (auto) 1.85 (1.0-4.6) Absolute Monos (auto) 0.67 (0.0-1.3) Lymphocytes % 18.2 L (24.0-44.0) % Monocytes % 6.6 (0.0-12.0) % Eosinophils % 2.6 (0.00-5.0) % Basophils % 0.2 (0.0-0.4) % Absolute Granulocytes 7.38 H (1.4-6.9) Basophils # 0.02 (0-0.4) D-Dimer 446 (215-500) ng/mL Troponin I < 0.012 (0.000-0.034) ng/mL - Progress Progress: unchanged Progress Note: 07/13/18 13:15 cxr-no acute process Counseled pt/family regarding: lab results, diagnosis, need for follow-up, rad results - Departure Time of Disposition: 13:15 Departure Disposition: Home Clinical Impression: Back pain Condition: Stable Critical Care Time: No Referrals: CESAR VALE [Primary Care Provider] - Additional Instructions: add ibuprofen for pain. follow up with your primary doctor for persistent symptoms Prescriptions: Hydrocodone/APAP 5-325 Tab^^^ [Nunda 5-325 Tablet^^^] 1 tab PO Q8H PRN PRN #6 tablet MDD 3 PRN Reason: Pain Cyclobenzaprine HCl 10 mg [Cyclobenzaprine 10 MG] 10 mg PO TID #10 tablet
[2018-07-13 12:08] VITALS: PULSE 68
[2018-07-13 12:13] LABS: BASOPHIL % 0.2 % (0.0-0.4); Basophil (Absolute #) 0.02 (0-0.4); Eosinophil % 2.6 % (0.00-5.0); Eosinophil (Absolute #) 0.26 (0-0.5); Granulocyte Absolute (ANC) 7.38 (1.4-6.9); Granulocytes % 72.4 % (36.0-66.0); Hematocrit 38.7 % (35-47); Hemoglobin 12.9 gm/dl (12.0-16.0); Lymphocyte (Absolute #) 1.85 (1.0-4.6); Lymphocytes % 18.2 % (24.0-44.0); Mean Cell Volume 93.5 fl (78-100); Mean Corpuscular Hemoglobin 31.2 pg (26-32); Mean Corpuscular Hgb Concent. 33.3 g/dl (32-36); Mean Platelet Volume 9.3 fl (6-9.5); Monocyte (Absolute #) 0.67 (0.0-1.3); Monocytes % 6.6 % (0.0-12.0); Platelet Count 236 K/mm3 (150-450); Red Blood Count 4.14 M/mm3 (4.1-5.4); Red Cell Distribution Width 12.2 % (11.5-14.0); White Blood Count 10.2 K/mm3 (4.0-10.5)
--- NOTE | 2018-07-13 12:51 | XRAY ---
Indication: Chest/back pain. Comparison: October 03, 2017. Portable chest demonstrates minimal lingular fibrosis/scarring. No focal infiltrate, consolidation, or large effusion. Heart is not enlarged for AP portable technique. Bony thorax intact again with mild degenerative changes. Impression: Nonacute chest with chronic features.
[2018-07-13 13:25] LABS: ALBUMIN 4.6 g/dL (3.5-5.0); ALKALINE PHOSPHATASE 71 U/L (38-126); ANION GAP 15.1 MEQ/L (5-15); BLOOD UREA NITROGEN 20 mg/dL (7-17); CHLORIDE 101 mmol/L (98-107); Calcium 10.2 mg/dL (8.4-10.2); Carbon Dioxide 25 mmol/L (22-30); Creatinine 1 0.63 mg/dL (0.52-1.04); Glucose 137 mg/dL (74-106); NT PRO BNP 42.9 pg/mL (0-900); Potassium 3.8 mmol/L (3.5-5.1); SGOT/AST 22 U/L (14-36); SGPT/ALT 28 U/L (0-35); SODIUM 137 mmol/L (137-145); Total Protein 8.1 g/dL (6.3-8.2)
[2018-07-13 13:43] VITALS: BP 142/78; O2SAT 98
== END 2018-07-13 13:41 | disposition home or self-care (01) ==
LOC: ED 10:57
DX: M54.6 Pain in thoracic spine (principal); N39.0 Urinary tract infection, site not specified; I10 Essential (primary) hypertension; G62.9 Polyneuropathy, unspecified; Z79.899 Other long term (current) drug therapy
CPT/HCPCS: 36000; 36415; 71045; 80053; 83880; 84484; 85025; 85379; 93005; 93041; 99284

== ENCOUNTER 2021-05-12 21:10 | Emergency (ER) | payer MEDICARE ==
[2021-05-12] MEDS ORDERED: Sodium Chloride 0.9% 1000 ML 1,000 ML IV SCH (21:30)
[2021-05-12] MEDS ORDERED: Sodium Chloride 0.9% 1000 ML 1,000 ML ONE (21:37)
[2021-05-12 21:45] LABS: Absolute Neutrophil Ct (ANC) 5.28 (1.4-6.9); Basophil (Absolute #) 0.03 (0-0.4); Eosinophil % 1.6 % (0.00-5.0); Eosinophil (Absolute #) 0.14 (0-0.5); Hematocrit 41.4 % (35-47); Hemoglobin 14.2 gm/dl (12.0-16.0); Lymphocyte (Absolute #) 2.44 (1.0-4.6); Lymphocytes % 28.5 % (24.0-44.0); Mean Corpuscular Hemoglobin 31.6 pg (26-32); Mean Corpuscular Hgb Concent. 34.3 g/dl (32-36); Monocyte (Absolute #) 0.67 (0.0-1.3); Monocytes % 7.8 % (0.0-12.0); Neutrophil % 61.7 % (36.0-66.0); Platelet Count 224 K/mm3 (150-450); Red Cell Distribution Width 12.2 % (11.5-14.0); White Blood Count 8.6 K/mm3 (4.0-10.5)
[2021-05-12 21:53] LABS: Appearance CLEAR (CLEAR); Bacteria RARE /HPF (NEGATIVE); Bilirubin NEGATIVE (NEGATIVE); Blood NEGATIVE Ery/ul (0-5); Epithelial Cells RARE /HPF (FEW); Glucose NEGATIVE (NEGATIVE); Ketones NEGATIVE (NEGATIVE); Leukocyte Esterase SMALL (NEGATIVE); Nitrite NEGATIVE (NEGATIVE); Protein,Urine Dip NEGATIVE (Negative); Specific Gravity 1.004 (1.005-1.025); Urobilinogen NEGATIVE mg/dL (0-1)
[2021-05-12 21:55] LABS: ALBUMIN 4.7 g/dL (3.5-5.0); ALKALINE PHOSPHATASE 81 U/L (38-126); AMYLASE 70 U/L (30-110); ANION GAP 13.7 MEQ/L (5-15); BLOOD UREA NITROGEN 13 mg/dL (7-17); CHLORIDE 101 mmol/L (98-107); Calcium 9.5 mg/dL (8.4-10.2); Carbon Dioxide 26 mmol/L (22-30); Creatinine 1 0.58 mg/dL (0.52-1.04); EST GLOMERULAR FILTRATION RATE > 60.0 ML/MIN; Glucose 115 mg/dL (74-106); LIPASE 79 U/L (23-300); Potassium 3.7 mmol/L (3.5-5.1); SGOT/AST 24 U/L (14-36); SGPT/ALT 30 U/L (0-35); SODIUM 137 mmol/L (137-145); Total Protein 7.8 g/dL (6.3-8.2)
[2021-05-12 22:00] LABS: INR 1.08 (0.8-3.0); PROTIME 12.8 SECONDS (9.4-12.5)
[2021-05-12 22:54] VITALS: O2SAT 95
--- NOTE | 2021-05-12 23:07 | ERPHSYRPT ---
- History of Present Illness Time Seen by Provider: 05/12/21 21:35 Historian: patient Exam Limitations: no limitations Patient Subjective Stated Complaint: back pain and abd pain primarily on rt side Triage Nursing Assessment: pt c/o back pain and primarily upper rt sided abd pain, sharp pain when it occurs but is intermittent. Abd soft with active bs x4 quad, nontender on palpation. LBM 05/12/21. Appetite good. Physician History: Patient is a 75-year-old white female who presents with episodes of sharp stabbing pain in the right back right flank area radiating into the abdomen for 2 days on and off. The pain does extend over to the left side somewhat both posterior and anterior. The pain as stated above started 2 days ago but was worse today. She is scheduled for an ultrasound of the pelvis and a mammogram tomorrow she has a history of having previous gallbladder surgery she denies fever chills sweats nausea vomiting or diarrhea. She recently was diagnosed with a UTI and is on Macrobid. During her pain she rates it 8 of 10 but she does not have any pain at present and has not had for 45 minutes. Allergies/Adverse Reactions: No Known Drug Allergies Allergy (Verified 05/12/21 21:34) Home Medications: Atorvastatin Calcium [Lipitor 20MG Tablet] 20 mg PO HS 10/24/15 [History] Carvedilol 6.25 mg [Coreg 6.25 MG] 12.5 mg PO BID 10/24/15 [History] Amlodipine Besylate 5 mg PO DAILY 09/05/17 [History] Aspirin/Dipyridamole [Aspirin-Dipyridam ER 25-200 mg] 25 mg PO BID 09/05/17 [History] Levomefolate/B6/B12/Algal Oil [Metanx Capsule] 1 cap PO DAILY 05/12/21 [History] Nitrofurantoin Monohyd/M-Cryst [Nitrofurantoin [place]-Mcr 100 mg] 1 tab PO BID 05/12/21 [History] Valsartan/Hydrochlorothiazide [Valsartan-Hctz 160-12.5 mg Tab] 1 tab PO DAILY 05/12/21 [History] Hx Tetanus, Diphtheria Vaccination/Date Given: Yes Hx Influenza Vaccination/Date Given: Yes Hx Pneumococcal Vaccination/Date Given: Yes Immunizations Up to Date: Yes Travel Risk - International Travel Have you traveled outside of the country in past 3 weeks: No - Coronavirus Screening Are you exhibiting any of the following symptoms?: No Close contact with a COVID-19 positive Pt in past 14-21 Days: No - Vaccine Status Have you recieved a Covid-19 vaccination: No - Review of Systems Constitutional: No Fever, No Chills Eyes: No Symptoms Ears, Nose, & Throat: No Symptoms Respiratory: No Cough, No Dyspnea Cardiac: No Chest Pain, No Edema, No Syncope Abdominal/Gastrointestinal: Abdominal Pain, No Nausea, No Vomiting, No Diarrhea Genitourinary Symptoms: No Dysuria Musculoskeletal: No Back Pain, No Neck Pain Skin: No Rash Neurological: No Dizziness, No Focal Weakness, No Sensory Changes Psychological: No Symptoms Endocrine: No Symptoms All Other Systems: Reviewed and Negative - Past Medical History Pertinent Past Medical History: Yes Neurological History: Peripheral Neuropathy ENT History: No Pertinent History Cardiac History: High Cholesterol, Hypertension Respiratory History: No Pertinent History Endocrine Medical History: No Pertinent History Musculoskeletal History: No Pertinent History GI Medical History: Gallbladder Disease, Pancreatitis History: No Pertinent History Psycho-Social History: No Pertinent History Female Reproductive Disorders: No Pertinent History Other Medical History: left leg - neuropathy - Past Surgical History Past Surgical History: Yes Neuro Surgical History: No Pertinent History Cardiac: No Pertinent History Respiratory: No Pertinent History Gastrointestinal: Cholecystectomy Genitourinary: No Pertinent History Musculoskeletal: No Pertinent History Female Surgical History: Hysterectomy Other Surgical History: partial hysterectomy. a/p repair for fallen bladder - Social History Smoking Status: Never smoker Exposure to second hand smoke: No Drug Use: none Patient Lives Alone: Yes - Nursing Vital Signs Nursing Vital Signs: Initial Vital Signs Temperature 98.4 F 05/12/21 21:22 Pulse Rate 69 05/12/21 21:22 Respiratory Rate 18 05/12/21 21:22 Blood Pressure 174/86 05/12/21 21:22 O2 Sat by Pulse Oximetry 97 05/12/21 21:22 Pain Scale Pain Intensity [Right Upper 2 Abdomen] Pain Intensity 2 - Physical Exam General Appearance: no apparent distress, alert Eye Exam: PERRL/EOMI, eyes nml inspection Ears, Nose, Throat Exam: normal ENT inspection, pharynx normal, moist mucous membranes Neck Exam: normal inspection, non-tender, supple, full range of motion Respiratory Exam: normal breath sounds, lungs clear, No respiratory distress Cardiovascular Exam: regular rate/rhythm, normal heart sounds Gastrointestinal/Abdomen Exam: soft, No tenderness, No mass Back Exam: normal inspection, normal range of motion, No CVA tenderness, No vertebral tenderness Extremity Exam: normal inspection, normal range of motion, pelvis stable Neurologic Exam: alert, oriented x 3, cooperative, normal mood/affect, nml cerebellar function, sensation nml, No motor deficits Skin Exam: normal color, warm, dry SpO2: 95 - Course Nursing assessment & vital signs reviewed: Yes EKG Interpreted by Me: RATE (64), Sinus Rhythm, NORMAL AXIS, NORMAL INTERVALS, NORMAL QRS, NORMAL ST-T - Radiology Exams Chest X-ray Interpretation: Interpreted by me, Negative (Negative for acute findings) - CT Exams Abdomen/Pelvis CT Interpretation: Tele-radiologist Report, Other (CT scan with contrast of the abdomen pelvis shows no acute findings) Ordered Tests: Active Orders 24 hr Category Date Time Status EKG-ER Only STAT Care 05/12/21 21:25 Active IV Insertion STAT Care 05/12/21 21:25 Active ABDOMEN AND PELVIS W CONTRAST [CT] Stat Exams 05/12/21 21:25 Taken CHEST 1 VIEW (PORTABLE) Stat Exams 05/12/21 21:25 Taken AMYLASE Stat Lab 05/12/21 21:40 Completed CBC W DIFF Stat Lab 05/12/21 21:40 Completed CMP Stat Lab 05/12/21 21:40 Completed LIPASE Stat Lab 05/12/21 21:40 Completed Lactic Acid Stat Lab 05/12/21 21:42 Completed PROTIME WITH INR Stat Lab 05/12/21 21:40 Completed TROPONIN Q3H Lab 05/12/21 21:40 Completed TROPONIN Q3H Lab 05/13/21 00:30 Ordered TROPONIN Q3H Lab 05/13/21 03:30 Ordered TROPONIN Q3H Lab 05/13/21 06:30 Ordered TROPONIN Q3H Lab 05/13/21 09:30 Ordered UA W/RFX UR CULTURE Stat Lab 05/12/21 21:40 Completed Medication Summary Generic Name Dose Route Start Last Admin Trade Name Freq PRN Reason Stop Dose Admin Sodium Chloride 1,000 mls @ 100 mls/hr 05/12/21 21:30 05/12/21 21:38 Sodium Chloride 0.9% 1000 Ml IV 06/11/21 21:29 100 mls/hr .Q10H AJ Administration Lab/Rad Data: Laboratory Result Diagrams 05/12/21 21:40 05/12/21 21:40 Laboratory Results 05/12/21 05/12/21 05/12/21 Range/Units 21:42 21:40 21:40 WBC (4.0-10.5) K/mm3 RBC (4.1-5.4) M/mm3 Hgb (12.0-16.0) gm/dl Hct (35-47) % MCV (78-100) fl MCH (26-32) pg MCHC (32-36) g/dl RDW (11.5-14.0) % Plt Count (150-450) K/mm3 MPV (7.5-11.0) fl Gran % (36.0-66.0) % Eos # (Auto) (0-0.5) Absolute Lymphs (auto) (1.0-4.6) Absolute Monos (auto) (0.0-1.3) Lymphocytes % (24.0-44.0) % Monocytes % (0.0-12.0) % Eosinophils % (0.00-5.0) % Basophils % (0.0-0.4) % Absolute Granulocytes (1.4-6.9) Basophils # (0-0.4) PT 12.8 H (9.4-12.5) SECONDS INR 1.08 (0.8-3.0) Sodium (137-145) mmol/L Potassium (3.5-5.1) mmol/L Chloride (98-107) mmol/L Carbon Dioxide (22-30) mmol/L Anion Gap (5-15) MEQ/L BUN (7-17) mg/dL Creatinine (0.52-1.04) mg/dL Estimated GFR ML/MIN Glucose (74-106) mg/dL Lactic Acid 0.8 (0.4-2.0) Calcium (8.4-10.2) mg/dL Total Bilirubin (0.2-1.3) mg/dL AST (14-36) U/L ALT (0-35) U/L Alkaline Phosphatase (38-126) U/L Troponin I < 0.012 (0.000-0.034) ng/mL Serum Total Protein (6.3-8.2) g/dL Albumin (3.5-5.0) g/dL Amylase (30-110) U/L Lipase (23-300) U/L Urine Color (YELLOW) Urine Appearance (CLEAR) Urine pH (5-6) Ur Specific [place] (1.005-1.025) Urine Protein (Negative) Urine Ketones (NEGATIVE) Urine Blood (0-5) Иван/ul Urine Nitrite (NEGATIVE) Urine Bilirubin (NEGATIVE) Urine Urobilinogen (0-1) mg/dL Ur Leukocyte Esterase (NEGATIVE) Urine WBC (Auto) (0-5) /HPF Urine RBC (Auto) (0-2) /HPF U Epithel Cells (Auto) (FEW) /HPF Urine Bacteria (Auto) (NEGATIVE) /HPF Urine Culture Reflexed (NO) Urine Glucose (NEGATIVE) mg/dL 05/12/21 05/12/21 05/12/21 Range/Units 21:40 21:40 21:40 WBC 8.6 (4.0-10.5) K/mm3 RBC 4.50 (4.1-5.4) M/mm3 Hgb 14.2 (12.0-16.0) gm/dl Hct 41.4 (35-47) % MCV 92.0 (78-100) fl MCH 31.6 (26-32) pg MCHC 34.3 (32-36) g/dl RDW 12.2 (11.5-14.0) % Plt Count 224 (150-450) K/mm3 MPV 9.0 (7.5-11.0) fl Gran % 61.7 (36.0-66.0) % Eos # (Auto) 0.14 (0-0.5) Absolute Lymphs (auto) 2.44 (1.0-4.6) Absolute Monos (auto) 0.67 (0.0-1.3) Lymphocytes % 28.5 (24.0-44.0) % Monocytes % 7.8 (0.0-12.0) % Eosinophils % 1.6 (0.00-5.0) % Basophils % 0.4 (0.0-0.4) % Absolute Granulocytes 5.28 (1.4-6.9) Basophils # 0.03 (0-0.4) PT (9.4-12.5) SECONDS INR (0.8-3.0) Sodium 137 (137-145) mmol/L Potassium 3.7 (3.5-5.1) mmol/L Chloride 101 (98-107) mmol/L Carbon Dioxide 26 (22-30) mmol/L Anion Gap 13.7 (5-15) MEQ/L BUN 13 (7-17) mg/dL Creatinine 0.58 (0.52-1.04) mg/dL Estimated GFR > 60.0 ML/MIN Glucose 115 H (74-106) mg/dL Lactic Acid (0.4-2.0) Calcium 9.5 (8.4-10.2) mg/dL Total Bilirubin 1.00 (0.2-1.3) mg/dL AST 24 (14-36) U/L ALT 30 (0-35) U/L Alkaline Phosphatase 81 (38-126) U/L Troponin I (0.000-0.034) ng/mL Serum Total Protein 7.8 (6.3-8.2) g/dL Albumin 4.7 (3.5-5.0) g/dL Amylase 70 (30-110) U/L Lipase 79 (23-300) U/L Urine Color YELLOW (YELLOW) Urine Appearance CLEAR (CLEAR) Urine pH 7.0 (5-6) Ur Specific [place] 1.004 (1.005-1.025) Urine Protein NEGATIVE (Negative) Urine Ketones NEGATIVE (NEGATIVE) Urine Blood NEGATIVE (0-5) Иван/ul Urine Nitrite NEGATIVE (NEGATIVE) Urine Bilirubin NEGATIVE (NEGATIVE) Urine Urobilinogen NEGATIVE (0-1) mg/dL Ur Leukocyte Esterase SMALL (NEGATIVE) Urine WBC (Auto) 6-10 (0-5) /HPF Urine RBC (Auto) NONE (0-2) /HPF U Epithel Cells (Auto) RARE (FEW) /HPF Urine Bacteria (Auto) RARE (NEGATIVE) /HPF Urine Culture Reflexed NO (NO) Urine Glucose NEGATIVE (NEGATIVE) mg/dL - Progress Progress: unchanged - Departure Departure Disposition: Home Clinical Impression: Abdominal pain, UTI (urinary tract infection) Condition: Stable Critical Care Time: No Referrals: CESAR RAMIREZ [Primary Care Provider] - Follow up/PCP as directed Instructions: Acute Abdomen (Belly Pain), Adult (DC) Prescriptions: Ciprofloxacin [Cipro 500 MG] 500 mg PO BID #14 tablet
[2021-05-12 23:08] VITALS: BP 139/75; PULSE 67
--- NOTE | 2021-05-13 09:09 | XRAY ---
Indication: Abdomen pain. Multiple contiguous axial images obtained through the abdomen and pelvis using 80 cc Isovue 370 contrast. Comparison: October 03, 2017. Lung bases demonstrates minimal scattered fibrosis/scarring. No infiltrate or effusion. Heart is not enlarged. Again small hiatal hernia. Noncontrasted stomach and bowel loops are nonobstructed. Normal appendix. Again mild diffuse scattered colonic diverticulosis without diverticulitis. Previous cholecystectomy and hysterectomy. No free fluid/air. Remaining liver, pancreas, spleen, adrenal glands, kidneys, ureters, and bladder are unremarkable. Minimal scattered aortic calcifications. No AAA or pathologic retroperitoneal lymphadenopathy. Osseous structures again demonstrates mild osteopenia, minimal degenerative changes throughout the spine, and moderate degenerative changes of both hips. Impression: 1. Again small hiatal hernia, colonic diverticulosis, and chronic bony findings. 2. Remaining CT abdomen/pelvis with contrast exam is negative. Comment: Preliminary interpretation made by [facility]. No critical discrepancy.
--- NOTE | 2021-05-13 09:13 | XRAY ---
Indication: Chest/abdomen pain 2 days. Comparison: July 13, 2018. Portable chest remains hyperinflated again with minimal left base fibrosis/scarring. No focal infiltrate, consolidation, or large effusion. Heart and mediastinal structures within normal limits. Bony thorax intact again with mild osteopenia and degenerative changes. Impression: Continued nonacute hyperinflated chest with chronic features.
== END 2021-05-12 23:16 | disposition home or self-care (01) ==
LOC: ED 21:10
DX: N39.0 Urinary tract infection, site not specified (principal); R10.84 Generalized abdominal pain; E78.5 Hyperlipidemia, unspecified; I10 Essential (primary) hypertension; Z79.899 Other long term (current) drug therapy
CPT/HCPCS: 36000; 36415; 71045; 74177; 80053; 81001; 82150; 83605; 83690; 84484; 85025; 85610; 93005; 99284